=== PATIENT | female | born 1940 | race Caucasian/White ===

== ENCOUNTER 2024-05-30 06:56 | Day surgery (SDC) | payer MEDICARE ==
[2024-05-27 09:24] LABS: Absolute Basophils 0.1 K/uL (0-0.5); Absolute Eosinophils 0.6 K/uL (0-0.5); Absolute Monocytes 0.9 K/uL (0.1-1.3); Absolute Neutrophil 5.6 K/uL (1.8-8.0); Basophils % 1.4 % (0-1.3); Eosinophils % 6.1 % (0-4.4); Hematocrit 27.5 % (36.0-45.0); Hemoglobin 8.9 g/dL (12.0-15.0); Lymphocytes % 29.6 % (15.3-44.8); MCH 25.8 pg (27.0-35.0); MCHC 32.3 g/dL (32.0-36.0); MCV 79.8 fL (80-100); MPV 6.9 fL (7.6-11.3); Monocytes % 8.7 % (3.3-12.3); Neutrophils % 54.2 % (41.7-73.7); Platelets 671 thou/uL (152-406); RBC Red Blood Cell Count 3.45 M/uL (3.86-4.86); Red Cell Distribution Width 18.7 % (12.1-15.2)
[2024-05-27 09:37] LABS: Anion Gap 6.8 mEq/L (5.0-15.0); Potassium 2.8 mEq/L (3.5-5.1)
[2024-05-30] MEDS ORDERED: propofoL 200 MG/20 ML VIAL IV ONE (07:19)
[2024-05-30] MEDS ORDERED: FENTANYL CITR 100 MCG/2 ML ONE (07:19)
[2024-05-30] MEDS ORDERED: LIDOCAINE 1% MPF 5 ML VIAL ONE (07:19)
[2024-05-30] MEDS: LIDOCAINE 4% TOP SOLUTION ONE (07:30)
[2024-05-30] MEDS: Ringers Lactate 1,000 ML IV ONE (07:45)
[2024-05-30] MEDS: Phenylephrine HCl 10 MG/ML 1 ML VIAL ONE (07:51)
[2024-05-30] MEDS: GLYCOPYRROLATE 0.2 MG/ML SYR ONE (07:52)
[2024-05-30] MEDS: LIDOCAINE 1% MPF 30 ML VIAL ONE (08:15)
--- NOTE | 2024-05-30 09:07 | RAD REPORT ---
EXAM DESCRIPTION: RAD - FLUORO-GUIDE FOR BRONCH [id number] - 05/30/2024 8:51 am CLINICAL HISTORY: R LOWER LOBE BRONCH COMPARISON: None available. FINDINGS: Four Images were sent to PACS, documenting fluoroscopy use during image guided right lower lobe bronchoscopy procedure. No radiologist was available for the procedure, nor will any image inte rpretation he provided. Please refer to the procedural report for additional details. Fluoroscopy time: 4.13 Minutes. IMPRESSION: Documentation of fluoroscopy utilization as above.
--- NOTE | 2024-05-30 09:58 | RAD REPORT ---
EXAM DESCRIPTION: Davidt Single View05/30/2024 9:39 am CLINICAL HISTORY: POST BRONCHOSCOPY- R/O PNEUMOTHORAX COMPARISON: CHEST PA AND LAT 2 VIEW dated 11/25/2012; CHEST PA AND LAT 2 VIEW dated 02/11/2011; CHEST P A AND LAT 2 VIEW dated 08/09/2008; CHEST PA AND LAT 2 VIEW dated 02/09/2008; Ct Skull/Thigh dated 2023; Thorax Wo Con dated 04/13/2024 TECHNIQUE: Portable AP view of the chest. FINDINGS: The right basilar large opacity/mass is stable compared to the prior CT and PET-CT allowin g for differences in technique. There may be a component of layering small effusion. No pneumothorax . The cardiomediastinal contours are unremarkable. IMPRESSION: No pneumothorax. Essentially stable right basilar large opacity/mass.
[2024-05-30 10:36] VITALS: TEMP 97.3
[2024-05-30 10:42] VITALS: BP 116/59
[2024-05-30 10:52] VITALS: O2SAT 94
--- NOTE | 2024-05-30 12:24 | P.OP ---
Date of Service: 05/30/24 (Bronchoscopy with right lower lobe endobronchial biopsies BAL) Findings and Operative Technique Patient is 83 years of age admitted with a right lower lobe lung mass with associated with weight loss history of lung cancer hence the reason for bronchoscopy Today report after obtaining informed consent from the patient premedicated by anesthesia Findings normal vocal cords normal trachea left-sided bronchial anatomy the trachea andrés appears to be a little thickened right lower lobe and the right middle lobe was completely obstructed by an endobronchial friable tumor cold biopsies were obtained and tolerated the procedure very well did not experience send Letitia any arrhythmias hypoxemia significant bleeding Note was hypokalemia that was present on admission
--- NOTE | 2024-05-31 18:01 | EKG ---
Test Date: 2024-05-27 Test Time: 09:06:56 Manager Clinical: AYAKA MEASUREMENT RESULTS: Intervals: Rate: 71 UT: 138 QRSD: 80 QT: 408 QTc: 443 [place]: P: 55 UT: 138 QRS: 113 T: 51 INTERPRETIVE STATEMENTS: Normal sinus rhythm Right axis deviation Abnormal ECG Compared to ECG 07/23/1999 15:17:00 Right-axis deviation now present Electronically Signed On 05-31-24 17:51:08 CDT by Wade Diego
== END 2024-05-30 10:18 | disposition home or self-care (01) ==
LOC: OR 06:56
PROVIDERS: ATTEND Internal Medicine Sleep Medicine
PROC: 0B9F8ZX Drainage of Right Lower Lung Lobe, Via Natural or Artificial Opening Endoscopic, Diagnostic (ICD-10-PCS; 2024-05-30)
PROC: 0BBF8ZX Excision of Right Lower Lung Lobe, Via Natural or Artificial Opening Endoscopic, Diagnostic (ICD-10-PCS; principal; 2024-05-30 08:00)
DX: C34.31 Malignant neoplasm of lower lobe, right bronchus or lung (principal); R63.4 Abnormal weight loss; E87.6 Hypokalemia; Z85.118 Personal history of other malignant neoplasm of bronchus and lung
CPT/HCPCS: 31625; 93005; 85025; 80048; 36415 ×2; 88108; 84132; 88305 ×2; 71045; 76000; J2704; J2001 ×2; J2371; J3010; J7120

== ENCOUNTER 2024-06-29 02:05 | Inpatient (IN) | payer MEDICARE ==
--- OUTSIDE RECORDS SUMMARY | 2024-06-29 02:10 | XMS REPORT | Continuity of Care Document ---
Author Name Unknown Address [address] [facility] [place] [address] [facility] thconnect Address [address] [facility] [address] [place] [address] Care Team Providers Care Aquaculture Director Name Role Phone Abhinav Monsalve Attending Clinician Unavailable Board_K Attending Clinician Unavailable Miller_S_AH Attending Clinician Unavailable ILANA LEYVA Attending Clinician Unavailable Pob, [facility] Main Attending Clinician Unavailabl e Eliazar Romano DO Attending Clinician ELIAZAR ROMANO Attending Clinician Unavailable Doctor Unassigned, Bison Attending Clinician U navailable Angelica-Mbayo_A_AH Attending Clinician Unavailable Board_K Admitting Clinician Unavailable Miller_S_AH Admitting Clinician Unavailable Angelica-Mbayo_A_AH Admitting Clinician Unavailable Payers Payer Name Policy Type Policy Number Effective Date Expirati on Date Source [facility] (MEDICARE REPLACEMENT HMO) [id number] 2022 00:00:00 [place] [id number] 2020 00:00:00 [place] [id number] 2020 00:00:00 [place] [id number] 2020 00:00:00 [facility] - [employer] (MEDICARE REPLACEMENT/ADVAN TAGE - HMO) [id number] 2019 00:00:00 [facility] PHYLLIS VILLARREAL CLASSIC/VALUE [id number] 2020 00:00:00 Problems Condition Name Condition Details Condition Category Status Onset Date Resolution Date Last Treatment Date Treating Clinician Comments Source Hypothyroi dism Other specified hypothyroi dism Problem [facility] Malignant neoplasm of lower lobe, right bronchus or lung Malignant neoplasm of lower lobe, right bronchus or lung Problem [facility] Malignant tumor of adrenal gland Malignant neoplasm of unspecifie d part of unspecifie d adrenal gland Problem [facility] [id number] Body mass index [BMI] 35.0-35.9, adult Problem [facility] [id number] Morbid (severe) obesity due to excess calories Problem [facility] Chronic kidney disease stage 3B (disorder) Stage 3b chronic kidney disease Problem Common [facility] [id number] Generalize d anxiety disorder Problem [facility] [id number] Degenerati ve disc disease, lumbar Problem [facility] [id number] Degenerati on, interverte bral disc, lumbosacra l Problem [facility] [id number] Essential hypertensi on Problem Common [facility] [id number] Age-relate d osteoporos is without current pathologic al fracture Problem [facility] [id number] Primary insomnia Problem Common [facility] [id number] Tobacco use disorder Problem [facility] Opioid dependence Uncomplica su opioid dependence Problem [facility] [id number] GERD without esophagiti s Problem [facility] [id number] Subclinica l hypothyroi dism Problem [facility] [id number] Osteoarthr itis of multiple joints, unspecifie d osteoarthr itis type Problem [facility] Screening for colon cancer Screening for colon cancer Problem [facility] Back pain Back pain Problem Comm on [facility] [id number] Pain, joint, hip, right Problem [facility] [id number] Acute bilateral low back pain, unspecifie d whether sciatica present Problem [facility] Lumbar radiculopa thy Chronic lumbar radiculopa thy Problem [facility] [id number] Pain, joint, hip, left Problem [facility] [id number] Dry eye syndrome of both eyes Problem [facility] [id number] Allergic rhinitis, unspecifie d seasonalit y, unspecifie d trigger Problem [facility] [id number] Current moderate episode of major depressive disorder without prior episode Problem [facility] Hip pain Hip pain Problem [facility] Allergies, Adverse Reactions, Alerts Allergy Name Allergy Type Status Severity Reaction(s) Onset Date Inactive Date Treating Clinician Comments Source NO KNOWN ALLERGIE S Drug Class Active [facility] Social History Social Habit Start Date Stop Date Quantity Comments Source Sex Assigned At [facility] History of Tobacco Use 2020-10-11 00:00:00 [facility] Smoking Status Start Date Stop Date Source Unknown if ever smoked [facility] Former Smoker 2024-06-28 00:00:00 2024-06-28 00:00:00 [facility] Medications Ordered Medication Name Filled Medication Name Start Date Stop Date Current Medication? Ordering Clinician Indication Dosage Frequency Signature (SIG) Comments Components Source traMADol HCl 50 MG traMADol HCl 50 MG 03-31 00:00: 00 No 1{table t_as_ne eded} traMADol HCl 50 MG Gabapentin 300 MG Gabapentin 300 MG No 1{capsu le} TID Gabapentin 300 MG Bumetanide 2 MG Bumetanide 2 MG No 1{table t} QD Bumetanide 2 MG Azelastine HCl 0.15 % Azelastine HCl 0.15 % No 2{spray s_in_ea ch_nost ril} QD Azelastine HCl 0.15 % Triamcinolo ne Acetonide 0.5 % Triamcinolo ne Acetonide 0.5 % No BID Triamcinol one Acetonide 0.5 % Calcium Carbonate-V itamin D 600-200 MG-UNIT Calcium Carbonate-V itamin D 600-200 MG-UNIT No 1{capsu le} BID Calcium Carbonate- Vitamin D 600-200 MG-UNIT Levothyroxi ne Sodium 50 MCG Levothyroxi ne Sodium 50 MCG No QD Levothyrox ine Sodium 50 MCG Fluticasone Propionate 50 MCG/ACT Fluticasone Propionate 50 MCG/ACT No 1{spray _in_eac h_nostr il} QD Fluticason e Propionate 50 MCG/ACT Alendronate Sodium 70 MG Alendronate Sodium 70 MG No Alendronat e Sodium 70 MG amLODIPine Besylate 5 MG amLODIPine Besylate 5 MG No 1{table t} QD amLODIPine Besylate 5 MG Omeprazole 20 MG Omeprazole 20 MG No QD Omeprazole 20 MG Lisinopril 40 MG Lisinopril 40 MG No 1{table t} QD Lisinopril 40 MG Sertraline HCl 50 MG Sertraline HCl 50 MG No 1{table t} QD Sertraline HCl 50 MG Montelukast Sodium 10 MG Montelukast Sodium 10 MG No 1{table t} QD Montelukas t Sodium 10 MG Azelastine- Fluticasone 137-50 MCG/ACT Azelastine- Fluticasone 137-50 MCG/ACT No 1{spray _in_eac h_nostr il} BID Azelastine -Fluticaso ne 137-50 MCG/ACT Immunizations Ordered Immunization Name Filled Immunization Name Date Status Comments Source FluAD FluAD 2021-06-21 13:58:00 Completed [facility] FluAD FluAD 2021-06-21 13:58:00 Completed [facility] FluAD FluAD 2021-06-21 13:58:00 [facility]pleted [facility] FluAD FluAD 2021-06-21 13:58:00 [facility]pleted [facility] FluAD FluAD 2021-06-21 13:58:00 [facility] FluAD FluAD 2021-06-21 13:58:00 [facility] FluAD Flu 2020-05-30 14:47:00 Completed [facility] FluAD FluAD 2020-05-30 14:47:00 Completed [facility] FluAD FluAD 2020-05-30 14:47:00 Completed [facility] FluAD FluAD 2020-05-30 14:47:00 Completed [facility] FluAD FluAD 2020-05-30 14:47:00 Completed [facility] FluAD FluAD 2020-05-30 14:47:00 Completed [facility] FluAD FluAD 2020-05-30 14:47:00 Completed [facility] FluAD FluAD 2020-05-30 14:47:00 Completed [facility] FluAD FluAD 2019-06-13 15:43:00 Completed [facility] FluAD FluAD 2019-06-13 15:43:00 Completed [facility] FluAD FluAD 2019-06-13 15:43:00 Completed [facility] FluAD FluAD 2019-06-13 15:43:00 Completed [facility] FluAD FluAD 2019-06-13 15:43:00 Completed [facility] FluAD FluAD 2019-06-13 15:43:00 Completed [facility] FluAD FluAD 2019-06-13 15:43:00 Completed [facility] FluAD FluAD 2019-06-13 15:43:00 Completed [facility] Pneumovax (PPSV23) Pneumovax (PPSV23) 2018-02-12 15:44:00 Completed [facility] Pneumovax (PPSV23) Pneumovax (PPSV23) 2018-02-12 15:44:00 Completed [facility] Pneumovax (PPSV23) Pneumovax (PPSV23) 2018-02-12 15:44:00 Completed [facility] Pneumovax (PPSV23) Pneumovax (PPSV23) 2018-02-12 15:44:00 Completed [facility] Pneumovax (PPSV23) Pneumovax (PPSV23) 2018-02-12 15:44:00 Completed [facility] Pneumovax (PPSV23) Pneumovax (PPSV23) 2018-02-12 15:44:00 Completed [facility] Pneumovax (PPSV23) Pneumovax (PPSV23) 2018-02-12 15:44:00 Completed [facility] Pneumovax (PPSV23) Pneumovax (PPSV23) 2018-02-12 15:44:00 Completed [facility] Pneumovax (PPSV23) Pneumovax (PPSV23) 2017-02-25 15:43:00 Completed [facility] Pneumovax (PPSV23) Pneumovax (PPSV23) 2017-02-25 15:43:00 Completed [facility] Pneumovax (PPSV23) Pneumovax (PPSV23) 2017-02-25 15:43:00 Completed [facility] Pneumovax (PPSV23) Pneumovax (PPSV23) 2017-02-25 15:43:00 Completed [facility] Pneumovax (PPSV23) Pneumovax (PPSV23) 2017-02-25 15:43:00 Completed [facility] Pneumovax (PPSV23) Pneumovax (PPSV23) 2017-02-25 15:43:00 Completed [facility] Pneumovax (PPSV23) Pneumovax (PPSV23) 2017-02-25 15:43:00 Completed [facility] Pneumovax (PPSV23) Pneumovax (PPSV23) 2017-02-25 15:43:00 Completed [facility] Zostavax Zostavax 2015-12-19 15:44:00 Completed [facility] Zostavax Zostavax 2015-12-19 15:44:00 Completed [facility] Zostavax Zostavax 2015-12-19 15:44:00 Completed [facility] Zostavax Zostavax 2015-12-19 15:44:00 Completed [facility] Zostavax Zostavax 2015-12-19 15:44:00 Completed [facility] Zostavax Zostavax 2015-12-19 15:44:00 Completed [facility] Zostavax Zostavax 2015-12-19 15:44:00 Completed [facility] Zostavax Zostavax 2015-12-19 15:44:00 Completed [facility] Adacel (Tdap) Adacel (Tdap) 2010-02-26 15:43:00 Completed [facility] Adacel (Tdap) Adacel (Tdap) 2010-02-26 15:43:00 Completed [facility] Adacel (Tdap) Adacel (Tdap) 2010-02-26 15:43:00 Completed [facility] Adacel (Tdap) Adacel (Tdap) 2010-02-26 15:43:00 Completed [facility] Adacel (Tdap) Adacel (Tdap) 2010-02-26 15:43:00 Completed [facility] Adacel (Tdap) Adacel (Tdap) 2010-02-26 15:43:00 Completed [facility] Adacel (Tdap) Adacel (Tdap) 2010-02-26 15:43:00 Completed [facility] Adacel (Tdap) Adacel (Tdap) 2010-02-26 15:43:00 Completed [facility] FluAD FluAD Unknown Completed [facility] FluAD FluAD Unknown Completed [facility] FluAD FluAD Unknown Completed [facility]pi [facility] Pneumovax (PPSV23) Pneumovax (PPSV23) Unknown Completed [facility] Pneumovax (PPSV23) Pneumovax (PPSV23) Unknown Completed [facility] Adacel (Tdap) Adacel (Tdap) Unknown Completed [facility] Zostavax Zostavax Unknown Completed [facility] FluAD FluAD Unknown Completed [facility] FluAD FluAD Unknown Completed [facility] FluAD FluAD Unknown Completed [facility] Pneumovax (PPSV23) Pneumovax (PPSV23) Unknown Completed [facility] Pneumovax (PPSV23) Pneumovax (PPSV23) Unknown Completed [facility] Adacel (Tdap) Adacel (Tdap) Unknown Completed [facility] Zostavax Zostavax Unknown Completed [facility] FluAD FluAD Unknown Completed [facility] FluAD FluAD Unknown Completed [facility] FluAD FluAD Unknown Completed [facility] Pneumovax (PPSV23) Pneumovax (PPSV23) Unknown Completed [facility] Pneumovax (PPSV23) Pneumovax (PPSV23) Unknown Completed [facility] Adacel (Tdap) Adacel (Tdap) Unknown Completed [facility] Zostavax Zostavax Unknown Completed [facility] FluAD FluAD Unknown Completed [facility] FluAD FluAD Unknown Completed [facility] FluAD FluAD Unknown Completed [facility] Pneumovax (PPSV23) Pneumovax (PPSV23) Unknown Completed [facility] Pneumovax (PPSV23) Pneumovax (PPSV23) Unknown Completed [facility] Adacel (Tdap) Adacel (Tdap) Unknown Completed [facility] Zostavax Zostavax Unknown Completed [facility] FluAD FluAD Unknown Completed [facility] FluAD FluAD Unknown Completed [facility] FluAD FluAD Unknown Completed [facility] Pneumovax (PPSV23) Pneumovax (PPSV23) Unknown Completed [facility] Pneumovax (PPSV23) Pneumovax (PPSV23) Unknown Completed [facility] Adacel (Tdap) Adacel (Tdap) Unknown Completed [facility] Zostavax Zostavax Unknown Completed [facility] FluAD FluAD Unknown Completed [facility] FluAD FluAD Unknown Completed [facility] FluAD FluAD Unknown Completed [facility] Pneumovax (PPSV23) Pneumovax (PPSV23) Unknown Completed [facility] Pneumovax (PPSV23) Pneumovax (PPSV23) Unknown Completed [facility] Adacel (Tdap) Adacel (Tdap) Unknown Completed [facility] Zostavax Zostavax Unknown Completed [facility] FluAD FluAD Unknown Completed [facility] FluAD FluAD Unknown Completed [facility] FluAD FluAD Unknown Completed [facility] Pneumovax (PPSV23) Pneumovax (PPSV23) Unknown Completed [facility] Pneumovax (PPSV23) Pneumovax (PPSV23) Unknown Completed [facility] Adacel (Tdap) Adacel (Tdap) Unknown Completed [facility] Zostavax Zostavax Unknown Completed [facility] FluAD FluAD Unknown Completed [facility] FluAD FluAD Unknown Completed [facility] FluAD FluAD Unknown Completed [facility] Pneumovax (PPSV23) Pneumovax (PPSV23) Unknown Completed [facility] Pneumovax (PPSV23) Pneumovax (PPSV23) Unknown Completed [facility] Adacel (Tdap) Adacel (Tdap) Unknown Completed [facility] Zostavax Zostavax Unknown Completed [facility] FluAD FluAD Unknown Completed [facility] FluAD FluAD Unknown Completed [facility] FluAD FluAD Unknown Completed [facility] Pneumovax (PPSV23) Pneumovax (PPSV23) Unknown Completed [facility] Pneumovax (PPSV23) Pneumovax (PPSV23) Unknown Completed [facility] Adacel (Tdap) Adacel (Tdap) Unknown Completed [facility] Zostavax Zostavax Unknown Completed [facility] FluAD FluAD Unknown Completed [facility] FluAD FluAD Unknown Completed [facility] FluAD FluAD Unknown Completed [facility] Pneumovax (PPSV23) Pneumovax (PPSV23) Unknown Completed [facility] Pneumovax (PPSV23) Pneumovax (PPSV23) Unknown Completed [facility] Adacel (Tdap) Adacel (Tdap) Unknown Completed [facility] Zostavax Zostavax Unknown Completed [facility] FluAD FluAD Unknown Completed [facility] FluAD FluAD Unknown Completed [facility] FluAD FluAD Unknown Completed [facility] Pneumovax (PPSV23) Pneumovax (PPSV23) Unknown Completed [facility] Pneumovax (PPSV23) Pneumovax (PPSV23) Unknown Completed [facility] Adacel (Tdap) Adacel (Tdap) Unknown Completed [facility] Zostavax Zostavax Unknown Completed [facility] FluAD FluAD Unknown Completed [facility] FluAD FluAD Unknown Completed [facility] FluAD FluAD Unknown Completed [facility] Pneumovax (PPSV23) Pneumovax (PPSV23) Unknown Completed [facility] Pneumovax (PPSV23) Pneumovax (PPSV23) Unknown Completed [facility] Adacel (Tdap) Adacel (Tdap) Unknown Completed [facility] Zostavax Zostavax Unknown Completed [facility] FluAD FluAD Unknown Completed [facility] FluAD FluAD Unknown Completed [facility] FluAD FluAD Unknown Completed [facility] Pneumovax (PPSV23) Pneumovax (PPSV23) Unknown Completed [facility] Pneumovax (PPSV23) Pneumovax (PPSV23) Unknown Completed [facility] Adacel (Tdap) Adacel (Tdap) Unknown Completed [facility] Zostavax Zostavax Unknown Completed [facility] FluAD FluAD Unknown Completed [facility] FluAD FluAD Unknown Completed [facility] FluAD FluAD Unknown Completed [facility] Pneumovax (PPSV23) Pneumovax (PPSV23) Unknown Completed [facility] Pneumovax (PPSV23) Pneumovax (PPSV23) Unknown Completed [facility] Adacel (Tdap) Adacel (Tdap) Unknown Completed [facility] Zostavax Zostavax Unknown Completed [facility] FluAD FluAD Unknown Completed [facility] FluAD FluAD Unknown Completed [facility] FluAD FluAD Unknown Completed [facility] Pneumovax (PPSV23) Pneumovax (PPSV23) Unknown Completed [facility] Pneumovax (PPSV23) Pneumovax (PPSV23) Unknown Completed [facility] Adacel (Tdap) Adacel (Tdap) Unknown Completed [facility] Zostavax Zostavax Unknown Completed [facility] FluAD FluAD Unknown Completed [facility] FluAD FluAD Unknown Completed [facility] FluAD FluAD Unknown Completed [facility] Pneumovax (PPSV23) Pneumovax (PPSV23) Unknown Completed [facility] Pneumovax (PPSV23) Pneumovax (PPSV23) Unknown Completed [facility] Adacel (Tdap) Adacel (Tdap) Unknown Completed [facility] Zostavax Zostavax Unknown Completed [facility] FluAD FluAD Unknown Completed [facility] FluAD FluAD Unknown Completed [facility] FluAD FluAD Unknown Completed [facility] Pneumovax (PPSV23) Pneumovax (PPSV23) Unknown Completed [facility] Pneumovax (PPSV23) Pneumovax (PPSV23) Unknown Completed [facility] Adacel (Tdap) Adacel (Tdap) Unknown Completed [facility] Zostavax Zostavax Unknown Completed [facility] FluAD FluAD Unknown Completed [facility] FluAD FluAD Unknown Completed [facility] FluAD FluAD Unknown Completed [facility] Pneumovax (PPSV23) Pneumovax (PPSV23) Unknown Completed [facility] Pneumovax (PPSV23) Pneumovax (PPSV23) Unknown Completed [facility] Adacel (Tdap) Adacel (Tdap) Unknown Completed [facility] Zostavax Zostavax Unknown Completed [facility] FluAD FluAD Unknown Completed [facility] FluAD FluAD Unknown Completed [facility] FluAD FluAD Unknown Completed [facility] Pneumovax (PPSV23) Pneumovax (PPSV23) Unknown Completed [facility] Pneumovax (PPSV23) Pneumovax (PPSV23) Unknown Completed [facility] Adacel (Tdap) Adacel (Tdap) Unknown Completed [facility] Zostavax Zostavax Unknown Completed [facility] FluAD FluAD Unknown Completed [facility] FluAD FluAD Unknown Completed [facility] FluAD FluAD Unknown Completed [facility] Pneumovax (PPSV23) Pneumovax (PPSV23) Unknown Completed [facility] Pneumovax (PPSV23) Pneumovax (PPSV23) Unknown Completed [facility] Adacel (Tdap) Adacel (Tdap) Unknown Completed [facility] Zostavax Zostavax Unknown Completed [facility] Vital Signs Vital Name Observation Time Observation Value Comments S ource height 2024-03-31 13:50:00 62 [in_i] Commo n [facility] weight 2024-03-31 13:50:00 144.4 [lb_av] [facility] temperature 2024-03-31 13:50:00 97.3 [degF] Com mon [facility] bmi 2024-03-31 13:50:00 26.41 kg/m2 Comm on [facility] oximetry 2024-03-31 13:50:00 95 % Commo n [facility] blood pressure systolic 2024-03-31 13:50:00 112 mm[Hg] [facility] blood pressure diastolic 2024-03-31 13:50:00 64 mm[Hg] [facility] height 2024-03-31 13:50:00 62 [in_i] Commo n [facility] weight 2024-03-31 13:50:00 144.4 [lb_av] Co mmon [facility] temperature 2024-03-31 13:50:00 97.3 [degF] Com mon [facility] bmi 2024-03-31 13:50:00 26.41 kg/m2 Comm on [facility] oximetry 2024-03-31 13:50:00 95 % Commo n [facility] blood pressure systolic 2024-03-31 13:50:00 112 mm[Hg] [facility] blood pressure diastolic 2024-03-31 13:50:00 64 mm[Hg] [facility] height 2023-12-30 13:50:00 62 [in_i] Commo n [facility] weight 2023-12-30 13:50:00 152.0 [lb_av] Co mmon [facility] temperature 2023-12-30 13:50:00 97.6 [degF] Com mon [facility] bmi 2023-12-30 13:50:00 27.8 kg/m2 Commo n [facility] oximetry 2023-12-30 13:50:00 95 % Commo n [facility] respiratory rate 2023-12-30 13:50:00 17 /min Common [facility] blood pressure systolic 2023-12-30 13:50:00 115 mm[Hg] [facility] blood pressure diastolic 2023-12-30 13:50:00 63 mm[Hg] [facility] height 2023-09-30 15:10:00 62 [in_i] Commo n [facility] weight 2023-09-30 15:10:00 165.8 [facility]lb_av] [facility]23[facility] 15:10:00 97.6 [degF] Com [facility] bmi 2023-09-30 15:10:00 30.32 kg/m2 Comm on [facility] oximetry 2023-09-30 15:10:00 95 % Commo n [facility] blood pressure systolic 2023-09-30 15:10:00 120 mm[Hg] [facility] blood pressure diastolic 2023-09-30 15:10:00 74 mm[Hg] Common [facility] height 2023-06-30 14:30:00 62 [in_i] Commo n [facility] weight 2023-06-30 14:30:00 175.0 [lb_av] Co [facility] temperature 2023-06-30 14:30:00 97.0 [degF] Com [facility] bmi 2023-06-30 14:30:00 32 kg/m2 Commo n [facility] oximetry 2023-06-30 14:30:00 97 % Commo n [facility] respiratory rate 2023-06-30 14:30:00 18 /min Common [facility] blood pressure systolic 2023-06-30 14:30:00 119 mm[Hg] [facility] blood pressure diastolic 2023-06-30 14:30:00 68 mm[Hg] [facility] height 2023-06-25 15:00:00 62 [in_i] Commo n [facility] weight 2023-06-25 15:00:00 185.1 [lb_av] Co [facility] temperature 2023-06-25 15:00:00 97.2 [degF] Com [facility] bmi 2023-06-25 15:00:00 33.85 kg/m2 Comm on [facility] blood pressure systolic 2023-06-25 15:00:00 138 mm[Hg] [facility] blood pressure diastolic 2023-06-25 15:00:00 76 mm[Hg] [facility] height 2023-03-24 14:30:00 62 [in_i] Commo n [facility] weight 2023-03-24 14:30:00 194.4 [lb_av] Co mmon [facility] temperature 2023-03-24 14:30:00 97.3 [degF] Com [facility] bmi 2023-03-24 14:30:00 35.55 kg/m2 Comm on [facility] oximetry 2023-03-24 14:30:00 96 % Commo n [facility] respiratory rate 2023-03-24 14:30:00 17 /min Common [facility] blood pressure systolic 2023-03-24 14:30:00 126 mm[Hg] [facility] blood pressure diastolic 2023-03-24 14:30:00 71 mm[Hg] [facility] height 2023-03-24 14:20:00 62 [in_i] Commo n [facility] weight 2023-03-24 14:20:00 194.4 [lb_av] Co mmon [facility] temperature 2023-03-24 14:20:00 97.3 [degF] Com [facility] bmi 2023-03-24 14:20:00 35.55 kg/m2 Comm on [facility] oximetry 2023-03-24 14:20:00 96 % Commo n [facility] respiratory rate 2023-03-24 14:20:00 17 /min Common [facility] blood pressure systolic 2023-03-24 14:20:00 126 mm[Hg] [facility] blood pressure diastolic 2023-03-24 14:20:00 71 mm[Hg] [facility] height 2022-12-16 14:10:00 62 [in_i] Commo n [facility] weight 2022-12-16 14:10:00 191 [lb_av] Comm on [facility] temperature 2022-12-16 14:10:00 96.9 [degF] Com mon [facility] bmi 2022-12-16 14:10:00 34.93 kg/m2 Comm on [facility] oximetry 2022-12-16 14:10:00 95 % Commo n [facility] respiratory rate 2022-12-16 14:10:00 16 /min Common [facility] blood pressure systolic 2022-12-16 14:10:00 112 mm[Hg] [facility] blood pressure diastolic 2022-12-16 14:10:00 57 mm[Hg] [facility] height 2022-09-11 15:00:00 62 [in_i] Commo n [facility] weight 2022-09-11 15:00:00 191.1 [lb_av] Co mmon [facility] temperature 2022-09-11 15:00:00 96.7 [degF] Com mon [facility] bmi 2022-09-11 15:00:00 34.95 kg/m2 Comm on [facility] oximetry 2022-09-11 15:00:00 97 % Commo n [facility] respiratory rate 2022-09-11 15:00:00 17 /min [facility] blood pressure systolic 2022-09-11 15:00:00 132 mm[Hg] [facility] blood pressure diastolic 2022-09-11 15:00:00 65 mm[Hg] Common [facility] height 2022-06-12 13:50:00 62 [in_i] Commo n [facility] weight 2022-06-12 13:50:00 192.5 [lb_av] Co [facility] temperature 2022-06-12 13:50:00 97.6 [degF] Com mon [facility] bmi 2022-06-12 13:50:00 35.2 kg/m2 Commo n [facility] oximetry 2022-06-12 13:50:00 96 % Commo n [facility] respiratory rate 2022-06-12 13:50:00 18 /min [facility] blood pressure systolic 2022-06-12 13:50:00 124 mm[Hg] Common [facility] blood pressure diastolic 2022-06-12 13:50:00 71 mm[Hg] [facility] height 2022-03-13 14:50:00 62 [in_i] Commo n [facility] weight 2022-03-13 14:50:00 193.2 [lb_av] Co [facility] temperature 2022-03-13 14:50:00 97.4 [degF] Com mon [facility] bmi 2022-03-13 14:50:00 35.33 kg/m2 Comm on [facility] oximetry 2022-03-13 14:50:00 96 % Commo n [facility] respiratory rate 2022-03-13 14:50:00 17 /min Common [facility] blood pressure systolic 2022-03-13 14:50:00 139 mm[Hg] [facility] blood pressure diastolic 2022-03-13 14:50:00 69 mm[Hg] [facility] height 2022-03-13 15:00:00 62 [in_i] Commo n [facility] weight 2022-03-13 15:00:00 193.2 [lb_av] Co mmon [facility] temperature 2022-03-13 15:00:00 97.4 [degF] Com [facility] bmi 2022-03-13 15:00:00 35.33 kg/m2 Comm on [facility] oximetry 2022-03-13 15:00:00 96 % Commo n [facility] respiratory rate 2022-03-13 15:00:00 17 /min Common [facility] blood pressure systolic 2022-03-13 15:00:00 139 mm[Hg] [facility] blood pressure diastolic 2022-03-13 15:00:00 69 mm[Hg] [facility] height 2021-12-12 14:00:00 62 [in_i] Commo n [facility] weight 2021-12-12 14:00:00 189.4 [lb_av] Co mmon [facility] temperature 2021-12-12 14:00:00 97.4 [degF] Com [facility] bmi 2021-12-12 14:00:00 34.64 kg/m2 Comm on [facility] oximetry 2021-12-12 14:00:00 95 % Commo n [facility] respiratory rate 2021-12-12 14:00:00 16 /min Common [facility] blood pressure systolic 2021-12-12 14:00:00 138 mm[Hg] [facility] blood pressure diastolic 2021-12-12 14:00:00 66 mm[Hg] Common [facility] height 2021-09-12 14:00:00 62 [in_i] Commo n [facility] weight 2021-09-12 14:00:00 195.3 [lb_av] Co mmon [facility] temperature 2021-09-12 14:00:00 97.3 [degF] Com mon [facility] bmi 2021-09-12 14:00:00 35.72 kg/m2 Comm on [facility] oximetry 2021-09-12 14:00:00 96 % Commo n [facility] respiratory rate 2021-09-12 14:00:00 18 /min Common [facility] blood pressure systolic 2021-09-12 14:00:00 132 mm[Hg] Common [facility] blood pressure diastolic 2021-09-12 14:00:00 65 mm[Hg] [facility] height 2021-06-13 14:30:00 62 [in_i] Commo n [facility] weight 2021-06-13 14:30:00 193.7 [lb_av] Co mmon [facility] temperature 2021-06-13 14:30:00 97.2 [degF] Com mon [facility] bmi 2021-06-13 14:30:00 35.42 kg/m2 Comm on [facility] oximetry 2021-06-13 14:30:00 96 % Commo n [facility] respiratory rate 2021-06-13 14:30:00 17 /min [facility] blood pressure systolic 2021-06-13 14:30:00 131 mm[Hg] [facility] blood pressure diastolic 2021-06-13 14:30:00 65 mm[Hg] [facility] Procedures Procedure Date / Time Performed Performing Clinicia n Source ASSIGNMENT OF BENEFITS 2020-12-03 17:00:00 Docto r Unassigned, [place] [facility] Encounters Start Date/Time End Date/Time Encounter Type Admission Type Attending [facility] Care Facility Care Department Encounter ID Source 2024-03-30 12:10:00 Outpatient Abhinav Monsalve [facility] [id number] [facility] 2023-12-28 13:56:00 Outpatient Monsalve, Abhinav [facility] [id number] [facility] 2023-06-29 13:40:00 Outpatient Monsalve, Abhinav [facility] [id number] [facility] 2023-06-25 16:28:00 Outpatient Monsalve, Abhinav [facility] [id number] [facility] 2023-06-22 14:58:00 Outpatient Monsalve, Abhinav [facility] [id number] [facility] 2023-06-17 13:39:00 Outpatient Monsalve, Abhinav [facility] [id number] [facility] 2023-03-20 10:17:00 Outpatient Monsalve, Abhinav [facility] [id number] [facility] 2022-12-15 12:17:00 Outpatient Monsalve, Abhinav [facility] [id number] [facility] 2022-09-10 09:39:01 Outpatient Monsalve, Abhinav [facility] [id number] [facility] 2022-03-15 09:19:00 Outpatient Monsalve, Abhinav [facility] [id number] [facility] 2021-11-06 13:45:34 Outpatient Monsalve, Abhinav [facility] [id number] [facility] 2021-11-06 12:52:54 Outpatient Monsalve, Abhinav [facility] [id number] [facility] 2021-11-06 12:34:43 Outpatient Monsalve, Abhinav [facility] [id number] [facility] 2021-11-06 12:33:57 Outpatient Monsalve, Abhinav [facility] [id number] [facility] 2021-11-06 11:21:23 Outpatient Abhinav Monsalve [facility] [id number] [facility] 2024-06-27 00:00:00 2024-06-27 00:00:00 (WEB) [facility]C [facility] [id number] [facility] 2024-06-17 00:00:00 2024-06-17 00:00:00 (TEL) STL[facility]C [facility] [id number] [facility] 2024-06-13 00:00:00 2024-06-13 00:00:00 (WEB) STLMLC ST[facility] [id number] [facility] 2024-05-20 00:00:00 2024-05-20 00:00:00 (TEL) STLMLC [facility] [id number] [facility] 2024-05-04 00:00:00 2024-05-04 00:00:00 (TEL) STLMLC [facility] [id number] [facility] 2024-04-13 00:00:00 2024-04-13 00:00:00 (TEL) STLMLC [facility] [id number] [facility] 2024-03-31 00:00:00 2024-03-31 00:00:00 OFFICE VISIT ESTAB PT LEVEL 4 [facility]C ST[facility] [id number] [facility] 2024-03-31 00:00:00 2024-03-31 00:00:00 SUB ANNUAL [facility] VISIT [facility] [id number] [facility] 2024-03-31 00:00:00 2024-03-31 00:00:00 (TEL) STLMLC ST[facility] [id number] [facility] 2023-12-30 00:00:00 2023-12-30 00:00:00 OFFICE VISIT ESTAB PT LEVEL 4 [facility]C ST[facility] [id number] [facility] 2023-09-30 00:00:00 2023-09-30 00:00:00 OFFICE VISIT ESTAB PT LEVEL 4 [facility]C [facility] [id number] [facility] 2023-07-20 00:00:00 2023-07-20 00:00:00 (TEL) STLMLC ST[facility]C [id number] [facility] 2023-07-13 00:00:00 2023-07-13 00:00:00 (WEB) STLMLC ST[facility]C [id number] [facility] 2023-07-12 00:00:00 2023-07-12 00:00:00 (WEB) STLMLC ST[facility] [id number] [facility] 2023-07-06 00:00:00 2023-07-06 00:00:00 (TEL) STLMLC ST[facility]C [id number] [facility] 2023-07-04 00:00:00 2023-07-04 00:00:00 (WEB) STLMLC STL[facility]C [id number] [facility] 2023-07-03 00:00:00 2023-07-03 00:00:00 (WEB) STLMLC ST[facility]C [id number] [facility] 2023-07-01 00:00:00 2023-07-01 00:00:00 (WEB) STLMLC STL[facility]C [id number] [facility] 2023-06-30 00:00:00 2023-06-30 00:00:00 OFFICE VISIT ESTAB PT LEVEL 4 [facility]C ST[facility]C [id number] [facility] 2023-06-29 00:00:00 2023-06-29 00:00:00 (TEL) STLMLC STL[facility]C [id number] [facility] 2023-06-29 00:00:00 2023-06-29 00:00:00 (TEL) STLMLC STL[facility]C [id number] [facility] 2023-06-28 00:00:00 2023-06-28 00:00:00 (WEB) STLMLC STL[facility]C [id number] [facility] 2023-06-25 00:00:00 2023-06-25 00:00:00 OFFICE VISIT NEW PT LEVEL 3 [facility]C STL[facility]C [id number] [facility] 2023-06-17 00:00:00 2023-06-17 00:00:00 (TEL) STLMLC ST[facility]C [id number] [facility] 2023-06-11 00:00:00 2023-06-11 00:00:00 (TEL) STLMLC STLMLC [id number] [facility] 2023-04-24 00:00:00 2023-04-24 00:00:00 Outpatient Board_K DMG DM [id number] [facility] 2023-03-24 00:00:00 2023-03-24 00:00:00 OFFICE VISIT ESTAB PT LEVEL 4 [facility]C ST[facility]C [id number] [facility] 2023-03-24 00:00:00 2023-03-24 00:00:00 SUB ANNUAL [facility] VIS[facility] [id number] [facility] 2023-02-13 00:00:00 2023-02-13 00:00:00 Outpatient DMG DMG [id number] [facility] 2022-12-16 00:00:00 2022-12-16 00:00:00 OFFICE VISIT ESTAB PT LEVEL 4 [facility]C STL[facility]C [id number] [facility] 2022-09-16 00:00:00 2022-09-16 00:00:00 Outpatient DMG DMG [id number] [facility] 2022-09-11 00:00:00 2022-09-11 00:00:00 OFFICE VISIT ESTAB PT LEVEL 4 [facility]LMLC STLMLC [id number] [facility] 2022-06-12 00:00:00 2022-06-12 00:00:00 OFFICE VISIT ESTAB PT LEVEL 4 [facility]C STL[facility]C [id number] [facility] 2022-03-13 00:00:2022-03-13 00:00:00 OFFICE VISIT ESTAB PT LEVEL 4 [facility]C STL[facility]C [id number] [facility] 2022-03-13 00:00:00 2022-03-13 00:00:00 SUB ANNUAL [facility] VIS[facility] ST[facility] [id number] [facility] 2021-12-12 00:00:00 2021-12-12 00:00:00 OFFICE VISIT ESTAB PT LEVEL 4 [facility]C STL[facility]C [id number] [facility] 2021-09-12 00:00:00 2021-09-12 00:00:00 OFFICE VISIT ESTAB PT LEVEL 4 [facility]LMLC STLMLC [id number] [facility] 2021-06-13 00:00:00 2021-06-13 00:00:00 OFFICE VISIT ESTAB PT LEVEL 4 [facility]C STL[facility]C [id number] [facility] 2021-06-13 00:00:00 2021-06-13 00:00:00 (TEL) STLMLC STLMLC [id number] [facility] 2021-06-03 00:00:00 2021-06-03 00:00:00 Outpatient [facility]LMLC ST[facility] [id number] [facility] 2021-04-08 05:25:00 2021-04-08 05:25:00 Outpatient Miller_S_AH VFP VFP [id number] [facility] 2021-03-13 00:00:00 2021-03-13 00:00:00 Outpatient STLMLC STL[facility]C [id number] [facility] 2021-03-13 00:00:00 2021-03-13 00:00:00 Outpatient STLMLC ST[facility]C [id number] [facility] 2021-01-30 00:00:00 2021-01-30 00:00:00 Outpatient [facility]LMLC STL[facility]C [id number] [facility] 2021-01-25 00:00:00 2021-01-25 00:00:00 Outpatient STLMLC STL[facility]C [id number] [facility] 2021-01-16 11:00:00 2021-01-16 11:00:00 Outpatient IL[facility] [id number] [facility] 2020-12-19 11:00:00 2020-12-19 11:00:00 Outpatient [facility] [id number] [facility] 2020-12-10 00:00:00 2020-12-10 00:00:00 Outpatient STLMLC STL[facility]C [id number] [facility] 2020-12-03 10:59:16 2020-12-03 11:14:16 Shake Packer Visit Pob, Adc Lab [facility] [id number] [facility] 2020-12-03 11:00:00 2020-12-03 11:00:00 Outpatient [facility] [id number] [facility] 2020-12-03 00:00:00 2020-12-03 00:00:00 Orders Only Doctor Unassigned, [place] [facility] [id number] [facility] 2020-08-28 00:00:00 2020-08-28 00:00:00 Outpatient STLMLC STLMLC [id number] [facility] 2020-05-24 12:59:00 2020-05-24 12:59:00 Outpatient [facility] [id number] [facility] 2020-05-23 15:15:00 2020-05-23 15:15:00 Outpatient [facility] [id number] [facility] 2020-05-23 15:00:00 2020-05-23 15:00:00 Outpatient [facility] [id number] [facility] 2020-02-20 15:30:00 2020-02-20 15:30:00 Outpatient [facility] [id number] [facility] 2019-12-08 01:00:00 2019-12-08 01:00:00 Outpatient Angelica-Mbayo _A_AH VFP VFP [id number] [facility] 2019-12-08 01:00:00 2019-12-08 01:00:00 Outpatient Angelica-Mbayo _A_AH VFP VFP [id number] [facility] 2019-12-08 01:00:00 2019-12-08 01:00:00 Outpatient Angelica-Mbayo _A_AH VFP VFP [id number] [facility] 2019-12-08 01:00:00 2019-12-08 01:00:00 Outpatient Angelica-Mbayo _A_AH VFP VFP [id number] [facility] 2019-12-08 01:00:00 2019-12-08 01:00:00 Outpatient Angelica-Mbayo _A_AH VFP VFP [id number] [facility] Results Test Description Test Time Test Comments Results Result Co mments Source [id number] 00:00:00* Test Item Value Reference Range Interpretation Comme nts FERRITIN (test code = 44129-2) 145 NG/ML See_Comment [Automated messa ge] The system which generated this result transmitted reference range: 13-200 NG/ML. The reference range was not used to interpret this result as normal/abnormal. CBC W/AUTO [id number] 00:00:00* Test Item Value Reference Range Interpretation Comme nts NUCLEATED RBCS (test code = 67937-3) 0.0 /100 WBC'S See_Comment [Automated messa ge] The system which generated this result transmitted reference range: 0.0 /100 WBC'S. The reference range was not used to interpret this result as normal/abnormal. ABSOLUTE EOSINOPHILS (test code = 96475-5) 0.34 K/UL See_Comment [Automated messa ge] The system which generated this result transmitted reference range: 0.00-0.50 K/UL. The reference range was not used to interpret this result as normal/abnormal. ABSOLUTE LYMPHOCYTES (test code = 77257-3) 2.74 K/UL See_Comment [Automated messa ge] The system which generated this result transmitted reference range: 1.00-4.00 K/UL. The reference range was not used to interpret this result as normal/abnormal. ABSOLUTE MONOCYTES (test code = 25611-7) 0.56 K/UL See_Comment [Automated messa ge] The system which generated this result transmitted reference range: 0.20-1.00 K/UL. The reference range was not used to interpret this result as normal/abnormal. ABSOLUTE NEUTROPHILS (test code = 05522-3) 4.42 K/UL See_Comment [Automated messa ge] The system which generated this result transmitted reference range: 1.50-7.50 K/UL. The reference range was not used to interpret this result as normal/abnormal. BASOPHILS (test code = 29512-9) 1.0 % EOSINOPHILS (test code = 50057-9) 4.2 % HEMATOCRIT (test code = 74541-4) 33.2 % See_Comment L [Automated messa ge] The system which generated this result transmitted reference range: 34.0-45.0 %. The reference range was not used to interpret this result as normal/abnormal. HEMOGLOBIN (test code = 718-7) 10.8 G/DL See_Comment L [Automated messa ge] The system which generated this result transmitted reference range: 11.5-15.5 G/DL. The reference range was not used to interpret this result as normal/abnormal. LYMPHOCYTES (test code = 23699-0) 33.5 % MCH (test code = 43787-3) 29.3 PG See_Comment [Automated messa ge] The system which generated this result transmitted reference range: 25.0-33.0 PG. The reference range was not used to interpret this result as normal/abnormal. MCHC (test code = 32880-5) 32.5 G/DL See_Comment [Automated messa ge] The system which generated this result transmitted reference range: 31.0-36.0 G/DL. The reference range was not used to interpret this result as normal/abnormal. MCV (test code = 87292-8) 90.2 fL See_Comment [Automated messa ge] The system which generated this result transmitted reference range: 80.0-99.0 fL. The reference range was not used to interpret this result as normal/abnormal. MONOCYTES (test code = 24172-6) 6.8 % NEUTROPHILS (test code = 00970-2) 53.9 % PLATELET COUNT (test code = 93626-4) 572 K/UL See_Comment H [Automated messa ge] The system which generated this result transmitted reference range: 130-400 K/UL. The reference range was not used to interpret this result as normal/abnormal. RBC (test code = 02426-7) 3.68 M/UL See_Comment L [Automated messa ge] The system which generated this result transmitted reference range: 3.80-5.40 M/UL. The reference range was not used to interpret this result as normal/abnormal. RDW (test code = 57743-3) 13.4 % See_Comment [Automated messa ge] The system which generated this result transmitted reference range: 11.5-15.0 %. The reference range was not used to interpret this result as normal/abnormal. WBC (test code = 82768-9) 8.2 K/UL See_Comment [Automated messa ge] The system which generated this result transmitted reference range: 3.5-11.0 K/UL. The reference range was not used to interpret this result as normal/abnormal. [id number] 00:00:00* Test Item Value Reference Range Interpretation Comme nts result (test code = 34558-6) Negative CBC W/AUTO [id number] 00:00:00* Test Item Value Reference Range Interpretation Comme nts NUCLEATED RBCS (test code = 10296-5) 0.0 /100 WBC'S See_Comment [Automated messa ge] The system which generated this result transmitted reference range: 0.0 /100 WBC'S. The reference range was not used to interpret this result as normal/abnormal. ABSOLUTE EOSINOPHILS (test code = 74732-0) 0.32 K/UL See_Comment [Automated messa ge] The system which generated this result transmitted reference range: 0.00-0.50 K/UL. The reference range was not used to interpret this result as normal/abnormal. ABSOLUTE LYMPHOCYTES (test code = 67462-0) 3.02 K/UL See_Comment [Automated messa ge] The system which generated this result transmitted reference range: 1.00-4.00 K/UL. The reference range was not used to interpret this result as normal/abnormal. ABSOLUTE MONOCYTES (test code = 00933-0) 0.55 K/UL See_Comment [Automated messa ge] The system which generated this result transmitted reference range: 0.20-1.00 K/UL. The reference range was not used to interpret this result as normal/abnormal. ABSOLUTE NEUTROPHILS (test code = 39351-0) 3.33 K/UL See_Comment [Automated messa ge] The system which generated this result transmitted reference range: 1.50-7.50 K/UL. The reference range was not used to interpret this result as normal/abnormal. BASOPHILS (test code = 87049-8) 2.0 % EOSINOPHILS (test code = 51917-2) 4.3 % HEMATOCRIT (test code = 79013-3) 36.4 % See_Comment [Automated messa ge] The system which generated this result transmitted reference range: 34.0-45.0 %. The reference range was not used to interpret this result as normal/abnormal. HEMOGLOBIN (test code = 718-7) 12.4 G/DL See_Comment [Automated messa ge] The system which generated this result transmitted reference range: 11.5-15.5 G/DL. The reference range was not used to interpret this result as normal/abnormal. LYMPHOCYTES (test code = 31587-4) 40.6 % MCH (test code = 36960-7) 31.0 PG See_Comment [Automated messa ge] The system which generated this result transmitted reference range: 25.0-33.0 PG. The reference range was not used to interpret this result as normal/abnormal. MCHC (test code = 32517-9) 34.1 G/DL See_Comment [Automated messa ge] The system which generated this result transmitted reference range: 31.0-36.0 G/DL. The reference range was not used to interpret this result as normal/abnormal. MCV (test code = 79325-2) 91.0 fL See_Comment [Automated messa ge] The system which generated this result transmitted reference range: 80.0-99.0 fL. The reference range was not used to interpret this result as normal/abnormal. MONOCYTES (test code = 74037-6) 7.4 % NEUTROPHILS (test code = 20748-0) 44.8 % PLATELET COUNT (test code = 67759-5) 460 K/UL See_Comment H [Automated messa ge] The system which generated this result transmitted reference range: 130-400 K/UL. The reference range was not used to interpret this result as normal/abnormal. RBC (test code = 84862-2) 4.00 M/UL See_Comment [Automated messa ge] The system which generated this result transmitted reference range: 3.80-5.40 M/UL. The reference range was not used to interpret this result as normal/abnormal. RDW (test code = 08716-6) 13.7 % See_Comment [Automated messa ge] The system which generated this result transmitted reference range: 11.5-15.0 %. The reference range was not used to interpret this result as normal/abnormal. WBC (test code = 29695-2) 7.4 K/UL See_Comment [Automated messa ge] The system which generated this result transmitted reference range: 3.5-11.0 K/UL. The reference range was not used to interpret this result as normal/abnormal. DEXA, BONE DENSITY AXIAL SKELEDEXA, BONE DENSITY AXIAL SKELE
[2024-06-29 03:26] LABS: Absolute Basophils 0.1 K/uL (0-0.5); Absolute Eosinophils 0.1 K/uL (0-0.5); Absolute Lymphocytes (CBC) 1.5 K/uL (0.7-4.9); Absolute Monocytes 0.9 K/uL (0.1-1.3); Basophils % 0.5 % (0-1.3); Eosinophils % 0.8 % (0-4.4); Hematocrit 19.4 % (36.0-45.0); Hemoglobin 6.4 g/dL (12.0-15.0); Lymphocytes % 11.3 % (15.3-44.8); MCH 25.6 pg (27.0-35.0); MCHC 33.1 g/dL (32.0-36.0); MCV 77.4 fL (80-100); MPV 6.8 fL (7.6-11.3); Monocytes % 6.8 % (3.3-12.3); Neutrophils % 80.6 % (41.7-73.7); Nucleated Red Blood Cells % 0.1 % (0-0); Platelets 757 thou/uL (152-406); Red Cell Distribution Width 18.3 % (12.1-15.2)
[2024-06-29 03:41] LABS: Troponin High Sensitivity 9.2 pg/mL (<58.9)
--- NOTE | 2024-06-29 04:31 | ER ---
Nurse's Notes [facility] Name: Robina Grey Age: 83 yrs Sex: Female : 1940 Arrival Date: 06/29/2024 Time: 02:05 Bed 19 Private MD: Diagnosis: Somatic anemia, ;Anemia of chronic disease Presentation: 06/29 02:34 Chief complaint: Patient states: notified of low HGB by primary. no symptoms reported lg3 at this time. Coronavirus screen: Client denies travel out of the [place] in the last 14 days. At this time, the client does not indicate any symptoms associated with coronavirus-19. Ebola Screen: No symptoms or risks identified at this time. Initial Sepsis Screen: Does the patient meet any 2 criteria? No. Patient's initial sepsis screen is negative. Does the patient have a suspected source of infection? No. Patient's initial sepsis screen is negative. Risk Assessment: Do you want to hurt yourself or someone else? Patient reports no desire to harm self or others. Onset of symptoms was June 29, 2024. 02:34 Method Of Arrival: Wheelchair lg3 02:34 Acuity: EMERSON 3 lg3 Triage Assessment: 02:36 General: Appears in no apparent distress. comfortable, Behavior is calm, cooperative. lg3 Pain: Denies pain. EENT: No deficits noted. No signs and/or symptoms were reported regarding the EENT system. Neuro: No deficits noted. Booker Agitation-Sedation Scale (RASS): 0 - Alert and Calm Level of Consciousness is awake, alert, obeys commands, Oriented to person, place, time, situation. Cardiovascular: No deficits noted. Denies chest pain, shortness of breath, Capillary refill < 3 seconds Clubbing of nail beds is absent JVD is absent Patient's skin is warm and dry. Respiratory: No deficits noted. Airway is patent Respiratory effort is even, unlabored, Respiratory pattern is regular, symmetrical. GI: No deficits noted. No signs and/or symptoms were reported involving the gastrointestinal system. : No deficits noted. No signs and/or symptoms were reported regarding the genitourinary system. Derm: No deficits noted. No signs and/or symptoms reported regarding the dermatologic system. Skin is intact, is healthy with good turgor, Skin is dry, Skin is normal, Skin temperature is warm. Musculoskeletal: No deficits noted. No signs and/or symptoms reported regarding the musculoskeletal system. Circulation, motion, and sensation intact. Range of motion: intact in all extremities. Historical: - Allergies: 02:36 No Known Allergies; lg3 - Home Meds: 02:36 amiodarone 200 mg oral tablet [Active]; Eliquis 5 mg oral tablet [Active]; fluticasone lg3 propionate 50 mcg/actuation intranasal spray, suspension [Active]; Fosamax 70 mg Oral tablet [Active]; gabapentin 300 mg oral capsule [Active]; levothyroxine 50 mcg tablet [Active]; lisinopril 40 mg Oral tablet [Active]; montelukast 10 mg oral tablet [Active]; omeprazole 20 mg Oral capsule,delayed release (e.c.) [Active]; sertraline oral [Active]; tramadol 50 mg Oral tablet [Active]; - PMHx: 02:36 AFIB; Osteoporosis; neuropathy; Hypothyroidism; GERD (Hypothyroidism); Depressive lg3 disorder; Anemia; Lung Cancer; TB (Lung Cancer); Hypertensive disorder; prediabetes; - PSHx: 02:36 cataract (prediabetes); Ligation of fallopian tube; lg3 - Immunization history:: Adult Immunizations up to date. - Infectious Disease History:: Denies. - Social history:: Smoking status: Patient denies any tobacco usage or history of. Patient/guardian denies using alcohol, street drugs. - Family history:: not pertinent. Screenin:17 [facility] ED Fall Risk Assessment (Adult) History of falling in the last 3 months, bm8 including since admission Yes- fall prone (multiple falls) (3 pts) Confusion or Disorientation No (0 pts) Intoxicated or Sedated No (0 pts) Impaired Gait Yes (1 pt) Mobility Assist Device Used Yes (1 pt) Altered Elimination Yes (1 pt) Score/Fall Risk Level 3 or more points = High Risk Oriented to surroundings, Maintained a safe environment, Educated pt \T\ family on fall prevention, incl call for assistance when getting out of bed, Assessed \T\ reinforced patient's understanding of fall precautions, Hourly rounding (assess needs \T\ fall precautionary measures) done, Used ambulatory aids as needed (educated on \T\ assisted with), Used gait belt as appropriate Implemented a Fall Risk Plan of Care. Abuse screen: Denies threats or abuse. Nutritional screening: No deficits noted. Tuberculosis screening: No symptoms or risk factors identified. Assessment: 04:24 Reassessment: No changes from previously documented assessment. dd2 05:17 Reassessment: Patient appears in no apparent distress at this time. Patient and/or bm8 family updated on plan of care and expected duration. Pain level reassessed. Patient is alert, oriented x 3, equal unlabored respirations, skin warm/dry/pink. Patient denies pain at this time. Patient states feeling better. General: Appears in no apparent distress. comfortable, Behavior is calm, cooperative, appropriate for age. Pain: Denies pain. Neuro: No deficits noted. Level of Consciousness is awake, alert, obeys commands, Oriented to person, place, time, situation, Appropriate for age. Respiratory: Airway is patent Respiratory effort is even, unlabored, Respiratory pattern is regular, symmetrical, PT ON 4 L NC. Vital Signs: 02:34 BP 123 / 61; Pulse 65; Resp 18 S; Temp 98.6(O); Pulse Ox 79% on R/A; Weight 58.97 kg lg3 (R); Height 5 ft. 2 in. (R); Pain 0/10; 03:28 BP 122 / 58; Pulse 66; Resp 19; Pulse Ox 99% on 4 lpm NC; dd2 04:23 BP 114 / 57; Pulse 65; Resp 18; Pulse Ox 100% on 4 lpm NC; dd2 05:17 BP 113 / 58; Pulse 65; Resp 17; Temp 98.6; Pulse Ox 100% on 4 lpm NC; Pain 0/10; bm8 02:34 Body Mass Index 23.78 (58.97 kg, 157.48 cm) lg3 02:34 Pain Scale: Adult lg3 05:17 Pain Scale: Adult bm8 [place] Coma Score: 03:17 Eye Response: spontaneous(4). Motor Response: obeys commands(6). Verbal Response: bm8 oriented(5). Total: 15. 04:32 Eye Response: spontaneous(4). Motor Response: obeys commands(6). Verbal Response: sp4 oriented(5). Total: 15. 05:17 Eye Response: spontaneous(4). Motor Response: obeys commands(6). Verbal Response: bm8 oriented(5). Total: 15. ED Course: 02:12 Patient arrived in ED. gm2 02:14 Jordi Rodriguez MD is Attending Physician. sp4 02:36 Triage completed. lg3 02:36 Arm band placed on right wrist. lg3 03:05 Prosper Holguin RN is Primary Nurse. bm8 03:06 Primary Nurse role handed off by Prosper Holguin RN dd2 03:06 ALEJA TAN RN is Primary Nurse. dd2 03:17 Patient has correct armband on for positive identification. Bed in low position. Call bm8 light in reach. Side rails up X2. Adult w/ patient. Client placed on continuous cardiac and pulse oximetry monitoring. NIBP monitoring applied. preform plate maker on. Pulse ox on. NIBP on. Door closed. Noise minimized. Warm blanket given. Pillow given. Verbal reassurance given. Head of bed elevated. 03:17 No provider procedures requiring assistance completed. Initial lab(s) drawn, by co, bm8 sent to lab. EKG done, by ED staff, reviewed by Jordi Rodriguez MD T\T\S collected, blood band applied to patient. Inserted saline lock: 20 gauge in right antecubital area, using aseptic technique. Blood collected. Flushed with 10 mL NS. Oxygen administration via nasal cannula \T\ 4L/min Response to oxygen therapy: symptoms improved. 04:29 Mg Hernandez MD is Hospitalizing Provider. sp4 05:17 Provided Education on: NEED FOR ADMISSION. bm8 05:17 Patient admitted, IV remains in place. bm8 Administered Medications: 05:17 Drug: Epogen Sub-Q 05666 units Sub-Q once Route: Sub-Q; Site: abdomen; bm8 05:17 Follow up: Response: No adverse reaction bm8 Medication: 03:17 VIS not applicable for this client. bm8 Outcome: 04:31 Decision to Hospitalize by Provider. sp4 05:17 Admitted to ER Hold. Please see [facility] for further documentation. bm8 05:17 Condition: stable 05:17 Instructed on the need for admit, Demonstrated understanding of instructions, follow-up care, 15:42 Patient left the ED. iw Signatures: Shara Steele RN RN iw AbleAileen RN RN lg3 Potepalov, Sergey, MD MD sp4 Cora Segal gm2 Prosper Holguin, RN RN bm8 ALEJA TAN RN RN dd2
--- NOTE | 2024-06-29 04:31 | EDPHYS ---
Physician Documentation [facility] Name: Robina Grey Age: 83 yrs Sex: Female : 1940 Arrival Date: 06/29/2024 Time: 02:05 Bed 19 Private MD: ED Physician Jordi Rodriguez HPI: 06/29 04:29 This 83 yrs old Female presents to ER via Wheelchair with complaints of sp4 Abnormal Lab Results. 04:31 83-year-old female presents with complaint of generalized weakness and reported her sp4 hemoglobin is low. Medical history consists of atrial fibrillation, osteoporosis, neuropathy, hypothyroidism, GERD, depressive disorder.. Historical: - Allergies: 02:36 No Known Allergies; lg3 - Home Meds: 02:36 amiodarone 200 mg oral tablet [Active]; Eliquis 5 mg oral tablet [Active]; fluticasone lg3 propionate 50 mcg/actuation intranasal spray, suspension [Active]; Fosamax 70 mg Oral tablet [Active]; gabapentin 300 mg oral capsule [Active]; levothyroxine 50 mcg tablet [Active]; lisinopril 40 mg Oral tablet [Active]; montelukast 10 mg oral tablet [Active]; omeprazole 20 mg Oral capsule,delayed release (e.c.) [Active]; sertraline oral [Active]; tramadol 50 mg Oral tablet [Active]; - PMHx: 02:36 AFIB; Osteoporosis; neuropathy; Hypothyroidism; GERD (Hypothyroidism); Depressive lg3 disorder; Anemia; Lung Cancer; TB (Lung Cancer); Hypertensive disorder; prediabetes; - PSHx: 02:36 cataract (prediabetes); Ligation of fallopian tube; lg3 - Immunization history:: Adult Immunizations up to date. - Infectious Disease History:: Denies. - Social history:: Smoking status: Patient denies any tobacco usage or history of. Patient/guardian denies using alcohol, street drugs. - Family history:: not pertinent. ROS: 04:32 Constitutional: Negative for fever, chills, and weight loss, positive generalized sp4 weakness, positive pallor 04:32 All other systems are negative, Exam: 04:32 Constitutional: This is a well developed, well nourished patient who is awake, alert, sp4 frail elderly female, pale appearing Head/Face: Normocephalic, atraumatic. Eyes: Pupils equal round and reactive to light, extra-ocular motions intact. Lids and lashes normal. Conjunctiva and sclera are not injected. Cornea within normal limits. Periorbital areas with no swelling, redness, or edema. ENT: Nares patent. No nasal discharge, no septal abnormalities noted. Tympanic membranes are normal and external auditory canals are clear. Oropharynx with no redness, swelling, or masses, exudates, or evidence of obstruction, uvula midline. Mucous membranes moist. Neck: Trachea midline, no thyromegaly or masses palpated, and no cervical lymphadenopathy. Supple, full range of motion without nuchal rigidity, or vertebral point tenderness. Chest/axilla: Normal chest wall appearance and motion. Nontender with no deformity. No lesions are appreciated. Cardiovascular: Regular rate and rhythm with a normal S1 and S2. No gallops, murmurs, or rubs. Normal PMI, no JVD. No pulse deficits. Respiratory: Lungs have equal breath sounds bilaterally, clear to auscultation and percussion. No rales, rhonchi or wheezes noted. No increased work of breathing, no retractions or nasal flaring. Abdomen/GI: Soft, with normal bowel sounds. No distension or tympany. No guarding or rebound. No evidence of tenderness throughout. Back: No spinal tenderness. No costovertebral tenderness. Skin: Warm, dry with normal turgor. Normal color with no rashes, no lesions, and no evidence of cellulitis. MS/ Extremity: Pulses equal, no cyanosis. Neurovascular intact. Full, normal range of motion. Neuro: Awake and alert, GCS 15, oriented to person, place, time, and situation. Cranial nerves II-XII grossly intact. Motor strength 5/5 in all extremities. Sensory grossly intact. Psych: Awake, alert, with orientation to person, place and time. Behavior, mood, and affect are within normal limits 04:32 ECG was reviewed by the Attending Physician. EKG at 0 321 normal sinus rhythm rate 67, low voltage QRS Vital Signs: 02:34 BP 123 / 61; Pulse 65; Resp 18 S; Temp 98.6(O); Pulse Ox 79% on R/A; Weight 58.97 kg lg3 (R); Height 5 ft. 2 in. (R); Pain 0/10; 03:28 BP 122 / 58; Pulse 66; Resp 19; Pulse Ox 99% on 4 lpm NC; dd2 04:23 BP 114 / 57; Pulse 65; Resp 18; Pulse Ox 100% on 4 lpm NC; dd2 05:17 BP 113 / 58; Pulse 65; Resp 17; Temp 98.6; Pulse Ox 100% on 4 lpm NC; Pain 0/10; bm8 02:34 Body Mass Index 23.78 (58.97 kg, 157.48 cm) lg3 02:34 Pain Scale: Adult lg3 05:17 Pain Scale: Adult bm8 [place] Coma Score: 03:17 Eye Response: spontaneous(4). Motor Response: obeys commands(6). Verbal Response: bm8 oriented(5). Total: 15. 04:32 Eye Response: spontaneous(4). Motor Response: obeys commands(6). Verbal Response: sp4 oriented(5). Total: 15. 05:17 Eye Response: spontaneous(4). Motor Response: obeys commands(6). Verbal Response: bm8 oriented(5). Total: 15. MDM: 02:15 Patient medically screened. sp4 04:32 Differential Diagnosis altered mental status, sepsis, flu. Data reviewed: vital signs, sp4 nurses notes, old medical records, lab test result(s), EKG, radiologic studies, plain films. 04:36 Consideration of Admission/Observation Patient was admitted/placed on observation. sp4 Escalation of care including admission/observation considered. Management of patient was discussed with the following: Hospitalist: David BULLARD . ED course: Patient has basically symptomatic anemia with hemoglobin 6.4 but patient is adamant she does not want blood products. Patient requests that means of anemia management such as Epogen . At this time we will request admission to internal medicine for consideration of other management of anemia. Patient was warned that she can suffer from acute ME secondary to low hemoglobin. . 06/29 02:14 Order name: CBC with Diff; Complete Time: 03:38 sp4 06/29 02:14 Order name: Type And Screen; Complete Time: 05:04 sp4 06/29 02:14 Order name: BMP; Complete Time: 03:51 sp4 06/29 02:15 Order name: NT PRO-BNP; Complete Time: 03:51 sp4 06/29 02:15 Order name: Troponin HS; Complete Time: 03:51 sp4 06/29 04:38 Order name: Urinalysis w/ reflexes; Complete Time: 07:52 EDMS 06/29 04:39 Order name: CBC with Automated Diff EDMS 06/29 04:39 Order name: CBC with Automated Diff EDMS 06/29 04:39 Order name: Comprehensive Metabolic Panel EDMS 06/29 04:39 Order name: Comprehensive Metabolic Panel EDMS 06/29 08:38 Order name: ABO/RH no charge EDMS 06/29 08:45 Order name: Iron EDMS 06/29 11:20 Order name: CBC with Automated Diff EDMS 06/29 12:10 Order name: Comprehensive Metabolic Panel EDMS 06/29 12:10 Order name: Magnesium EDMS 06/29 12:10 Order name: Iron EDMS 06/29 12:10 Order name: Vitamin B12 Level EDMS 06/29 12:14 Order name: Retic Count EDMS 06/29 02:14 Order name: Saline Lock; Complete Time: 03:13 sp4 06/29 02:15 Order name: Cardiac monitoring; Complete Time: 03:17 sp4 06/29 02:15 Order name: EKG - Nurse/Tech; Complete Time: 03:17 sp4 06/29 02:15 Order name: Labs collected and sent; Complete Time: 03:17 sp4 06/29 02:15 Order name: O2 Per Protocol; Complete Time: 03:17 sp4 06/29 02:15 Order name: O2 Sat Monitoring; Complete Time: 03:17 sp4 EC:32 Rate is 67 beats/min. Rhythm is regular, Normal Sinus Rhythm. QRS [place] is Normal. [place] sp4 interval is normal. QRS interval is normal. QT interval is normal. No Q waves. T waves are Normal. No ST changes noted. Clinical impression: No evidence of ischemia. Interpreted by me. Reviewed by me. Administered Medications: 05:17 Drug: Epogen Sub-Q 85704 units Sub-Q once Route: Sub-Q; Site: abdomen; bm8 05:17 Follow up: Response: No adverse reaction bm8 Disposition Summary: 06/29/24 04:31 Hospitalization Ordered Notes: Hospitalization Status: Inpatient Admission sp4 Provider: Mg Hernandez spTeodoro Condition: Stable sp4 Problem: new sp4 Symptoms: have improved sp4 Bed/Room Type: Standard sp4 Location: Telemetry/MedSurg (Inpatient)(06/29/24 13:28) bd Room Assignment: 402(06/29/24 13:28) bd Diagnosis - Somatic anemia, sp4 - Anemia of chronic disease sp4 Forms: - Medication Reconciliation Form sp4 - SBAR form sp4 - Leadership Thank You Letter sp4 Signatures: Dispatcher [employer] EDMS Bharti Pacheco bd Aileen Cratf RN RN lg3 Angelica Motley rv1 Jordi Rodriguez MD MD sp4 Prosper Holguin RN RN bm8 Corrections: (The following items were deleted from the chart) 02:14 02:14 CBC+H.LAB.BRZ ordered. EDMS EDMS 02:14 02:14 TYPE AND SCREEN+BB.LAB.BRZ ordered. EDMS EDMS 02:14 02:14 BASIC METABOLIC PANEL+C.LAB.BRZ ordered. EDMS EDMS 04:43 04:31 Telemetry/MedSurg (Inpatient) sp4 rv1 04:43 04:31 sp4 rv1 13:28 04:43 [facility] ER HOLD rv1 bd 13:28 04:43 ERHOLD- rv1 bd
--- NOTE | 2024-06-29 04:39 | P.HP ---
Certification for Inpatient Patient admitted to: Observation With expected LOS: <2 Midnights Practitioner: I am a practitioner with admitting privileges, knowledge of patient current condition, hospital course, and medical plan of care. Services: Services provided to patient in accordance with Admission requirements found in Title 42 Section 412.3 of the Code of Federal Regulations Patient History Date of Service: 06/29/24 Reason for admission: Dizziness, low Hb History of Present Illness: 83 yrs old Female with past medical history of atrial fibrillation on Eliquis, osteoporosis, neuropathy, hypothyroidism, GERD, depression, history of lung cancer, hypertension, prediabetes, anemia and history of cataract presents to ER with complaints of generalized weakness and dizziness and Abnormal Lab Results. Patient has been followed as an outpatient with the PCP and had lab work send found to have low hemoglobin and was sent over to here for further management. Patient denies any chest pain or shortness of breath. No fever or chills. No bleeding. Denies any melena or hematemesis. Patient was assessed in the ER and was admitted for further management of anemia symptomatic Allergies No Known Allergies Allergy (Verified 05/30/24 08:15) Home medications list reviewed: Yes Home Medications: Alendronate Sodium/Vitamin D3 [Fosamax Plus D 70 mg-2,800 Iu] 1 each PO Q7D 05/27/24 Cholecalciferol (Vitamin D3) [Vitamin D3] 1,000 unit PO BEDTIME 05/27/24 Fluticasone [Flonase 50MCG Nasal [place]*] 1 spray NS DAILY 05/27/24 Gabapentin 300 mg PO TID 05/27/24 Levothyroxine [Synthroid*] 50 mcg PO [id number] 05/27/24 Lisinopril [Zestril] 40 mg PO BEDTIME 05/27/24 Montelukast [Singulair*] 10 mg PO DAILY 05/27/24 Omeprazole 20 mg PO DAILY 05/27/24 Sertraline [Zoloft*] 50 mg PO BEDTIME 05/27/24 Amiodarone HCl [Cordarone*] 200 mg PO BID #180 tab 06/23/24 Apixaban [Eliquis] 5 mg PO BID #180 tab 06/23/24 Ensure Enlive 237 ml PO BID #30 can 06/23/24 - Past Medical/Surgical History Past Medical History: Reviewed- Non-Contributory Past Surgical History: Reviewed- Non-Contributory - Family History Family History: Reviewed- Non-Contributory - Social History Smoking Status: Never smoker Alcohol use: No CD- Drugs: No Caffeine use: No Review of Systems 10-point ROS is otherwise unremarkable Physical Examination - Vital Signs Temperature: 97.2 F Blood Pressure: 126/75 Pulse: 76 Respirations: 18 Pulse Ox (%): 94 - Physical Exam General: Alert, In no apparent distress, Oriented x3 HEENT: Atraumatic, Normocephalic Neck: Supple Respiratory: Clear to auscultation bilaterally, Normal air movement Cardiovascular: Regular rate/rhythm, Normal S1 S2 Capillary refill: <2 Seconds Gastrointestinal: Soft and benign, Non-distended, W/out hepatosplenomegaly Musculoskeletal: No clubbing, No swelling Integumentary: No rashes, No breakdown Neurological: Normal speech, Normal strength at 5/5 x4 extr, Cranial nerves 3-12 intact Lymphatics: No axilla or inguinal lymphadenopathy - Studies Laboratory Data (last 24 hrs) 06/29/24 06/29/24 03:13 03:13 WBC 13.60 H Hgb 6.4 L Hct 19.4 L Plt Count 757 H Sodium 132 L Potassium 3.0 L BUN 16 Creatinine 0.84 Glucose 98 Assessment and Plan - Plan Anemia of chronic disease/nutritional Hypochromic microcytic Will get an iron level and TIBC Discussed in detail with the patient regarding blood transfusion Patient adamantly refused blood transfusion Monitor closely Denies any bleeding Hyponatremia Hypokalemia Will replace electrolytes and monitor closely Hypertension Antihypertensives titrated Continue home medications and titrate as needed Hyperlipidemia Continue statin History of atrial fibrillation Monitor closely under telemetry On Eliquis Will hold for now GI/DVT prophylaxis Advanced directive full code Discharge Plan: Home Plan to discharge in: 48 Hours - Advance Directives Does patient have a Living Will: No Does patient have a Durable POA for Healthcare: No - Code Status/Comfort Care Code Status: Full Code Time Spent Managing Pts Care (In Minutes): 48
[2024-06-29 07:29] LABS: Specific Gravity 1.011 (1.005-1.030); Sqamous Epithelial <5 /HPF (None Seen); Urine Bacteria None Seen /HPF (<20); Urine Bilirubin NEGATIVE (Negative); Urine Blood Negative (Negative); Urine Clarity Turbid (Clear); Urine Color Light-Yellow (Yellow); Urine Culture Reflex Order REFLEXED; Urine Glucose NEGATIVE (Negative); Urine Ketones NEGATIVE (Negative); Urine Microscopic Reflex YN ORDER UMIC; Urine Mucus Slight /HPF (None Seen); Urine Nitrite NEGATIVE (Negative); Urine Protein TRACE (Negative); Urine RBC None Seen /HPF (None Seen); Urine Urobilinogen Normal (Normal)
[2024-06-29] MEDS: EPOETIN ALFA-EPBX 10,000 UNIT/ML VIAL ONE (08:00)
[2024-06-29] MEDS ORDERED: KCL 20 MEQ/100 mL IVPB 100 ML IV ONE (08:21)
[2024-06-29] MEDS: KCL 20 MEQ/100 mL IVPB 20 MEQ/100 ML BAG IV SCH (09:00)
[2024-06-29] MEDS: EPOETIN ALFA 10,000 UNIT/ML VIAL SQ ONE (09:15)
[2024-06-29] MEDS ORDERED: EPOETIN ALFA-EPBX 10,000 UNIT/ML VIAL SQ ONE (09:45)
[2024-06-29 11:18] LABS: Absolute Basophils 0.1 K/uL (0-0.5); Absolute Eosinophils 0.1 K/uL (0-0.5); Absolute Lymphocytes (CBC) 1.5 K/uL (0.7-4.9); Absolute Monocytes 1.1 K/uL (0.1-1.3); Basophils % 0.4 % (0-1.3); Eosinophils % 0.6 % (0-4.4); Hematocrit 21.3 % (36.0-45.0); Hemoglobin 6.6 g/dL (12.0-15.0); Lymphocytes % 9.9 % (15.3-44.8); MCH 24.2 pg (27.0-35.0); MCHC 30.9 g/dL (32.0-36.0); MCV 78.5 fL (80-100); MPV 6.9 fL (7.6-11.3); Monocytes % 7.4 % (3.3-12.3); Neutrophils % 81.7 % (41.7-73.7); Platelets 761 thou/uL (152-406); RBC Red Blood Cell Count 2.71 M/uL (3.86-4.86); Red Cell Distribution Width 17.8 % (12.1-15.2)
[2024-06-29] MEDS: SOD FERRIC GLUC COMPLX/SUCROSE 125 MG in NA CHLORIDE 0.9% 100 ML IV SCH (11:30)
[2024-06-29 12:07] LABS: AST/SGOT 15 U/L (15-37); Albumin 1.6 g/dL (3.4-5.0); Albumin/Globulin Ratio 0.4 (1.1-1.8); Alkaline Phosphatase 122 U/L (45-117); Anion Gap 8.2 mEq/L (5.0-15.0); BUN Blood Urea Nitrogen 12 mg/dL (7-18); Bicarbonate 30 mEq/L (21-32); Bilirubin Total 0.4 mg/dL (0.2-1.0); Globulin 4.1 g/dL (2.3-3.5); Glomerular Filtration Rate 85 ml/min (=/>90); Glucose Level 97 mg/dL (74-106); Magnesium 1.4 mg/dL (1.6-2.4); Potassium 4.2 mEq/L (3.5-5.1); Protein, Total 5.7 g/dL (6.4-8.2); Sodium Level 135 mEq/L (136-145)
[2024-06-29 12:10] LABS: ALT/SGPT < 14 U/L (13-56)
[2024-06-29 12:13] LABS: Percent Reticulocyte Count 2.39 % (0.4-2.05)
[2024-06-29] MEDS: ACETAMINOPHEN 325 MG TABLET PO PRN (16:31)
--- NOTE | 2024-06-29 22:10 | P.PN ---
Date of Service: 06/29/24 Subjective Patient is doing well but she does want a blood transfusion. Continue with clinical management at this time. Physical Examination - Vital Signs Reviewed - Physical Exam General: Alert, In no apparent distress, Oriented x3 Respiratory: Clear to auscultation bilaterally, Normal air movement Cardiovascular: Regular rate/rhythm, Normal S1 S2 Gastrointestinal: Soft and benign, Non-distended, W/out hepatosplenomegaly Musculoskeletal: No clubbing, No swelling Integumentary: No rashes, No breakdown Neurological: No focal deficits Assessment and Plan - Assessment/Plan Assessment/Plan 1. Acute blood loss anemia; Patient with severe anemia with a hemoglobin of 6.8. Patient's hemoglobin has been decreasing even though she is on Procrit. Patient refuses blood transfusion but will try other measures to try to get her hemoglobin up and keep it from dropping. Reticulocyte count is elevated. 2.Hyponatremia; hypokalemia Will replace electrolytes and monitor closely 3. Hypertension Antihypertensives titrated; Continue home medications and titrate as needed 4. Hyperlipidemia; Continue statin 5. History of atrial fibrillation; Monitor closely under telemetry. On Eliquis-W ill hold for now GI/DVT prophylaxis Advanced directive full code Discharge Plan: Home Plan to discharge in: 48 Hours - Advance Directives Does patient have a Living Will: No Does patient have a Durable POA for Healthcare: No - Code Status/Comfort Care Code Status: Full Code Time Spent Managing Pts Care (In Minutes): 30
[2024-06-29] MEDS: CYANOCOBALAMIN 1000MCG/ML INJ IM ONE (22:26)
[2024-06-30 07:34] LABS: Absolute Basophils 0.1 K/uL (0-0.5); Absolute Eosinophils 0.1 K/uL (0-0.5); Absolute Lymphocytes (CBC) 1.5 K/uL (0.7-4.9); Absolute Monocytes 0.8 K/uL (0.1-1.3); Absolute Neutrophil 8.3 K/uL (1.8-8.0); Basophils % 0.5 % (0-1.3); Eosinophils % 0.8 % (0-4.4); Hematocrit 19.8 % (36.0-45.0); Hemoglobin 6.5 g/dL (12.0-15.0); MCH 25.6 pg (27.0-35.0); MCHC 32.8 g/dL (32.0-36.0); MCV 78.1 fL (80-100); MPV 6.8 fL (7.6-11.3); Monocytes % 7.9 % (3.3-12.3); Neutrophils % 76.8 % (41.7-73.7); Platelets 836 thou/uL (152-406); RBC Red Blood Cell Count 2.53 M/uL (3.86-4.86)
[2024-06-30 07:55] LABS: AST/SGOT 14 U/L (15-37); Albumin 1.5 g/dL (3.4-5.0); Albumin/Globulin Ratio 0.4 (1.1-1.8); Alkaline Phosphatase 109 U/L (45-117); Anion Gap 7.4 mEq/L (5.0-15.0); BUN Blood Urea Nitrogen 10 mg/dL (7-18); Bicarbonate 29 mEq/L (21-32); Bilirubin Total 0.4 mg/dL (0.2-1.0); Globulin 3.9 g/dL (2.3-3.5); Glomerular Filtration Rate 87 ml/min (=/>90); Glucose Level 86 mg/dL (74-106); Potassium 3.4 mEq/L (3.5-5.1); Protein, Total 5.4 g/dL (6.4-8.2); Sodium Level 135 mEq/L (136-145)
[2024-06-30 07:56] LABS: ALT/SGPT < 14 U/L (13-56)
[2024-06-30] MEDS: POTASSIUM CL SA 10 MEQ TAB PO ONE ×2 (09:10→20:01)
[2024-06-30] MEDS: MULTIVITAMINS IV SCH (09:10)
[2024-06-30] MEDS: [UNRECOGNIZED DRUG - OTHER] IV SCH (09:10)
[2024-06-30] MEDS: FOLIC ACID IV SCH (09:10)
[2024-06-30] MEDS: THIAMINE HCL IV SCH (09:10)
[2024-06-30] MEDS: SOD FERRIC GLUC COMPLX/SUCROSE 125 MG in NA CHLORIDE 0.9% 100 ML IV SCH (10:02)
[2024-06-30] MEDS: ALBUMIN HUMAN 25% 100 ML IV ONE (11:31)
--- NOTE | 2024-06-30 12:22 | EKG ---
Test Date: 2024-06-29 Test Time: 03:21:28 Molder Shoulder Pad: ERASMO MEASUREMENT RESULTS: Intervals: Rate: 67 MD: 148 QRSD: 84 QT: 436 QTc: 460 [place]: P: 67 MD: 148 QRS: 89 T: 13 INTERPRETIVE STATEMENTS: Normal sinus rhythm Cannot rule out Anterior infarct, age undetermined Abnormal ECG Compared to ECG 06/16/2024 11:32:16 Left-axis deviation no longer present Myocardial infarct finding still present Electronically Signed On 06-30-24 12:17:51 CDT by Wade Diego
[2024-06-30] MEDS ORDERED: SODIUM CHLORIDE 0.9% 10ML INJ IV PRN (12:48)
[2024-06-30] MEDS ORDERED: MAGNES/ALUMIN/SIMET 30ML UCUP PO PRN (13:02)
[2024-06-30] MEDS: PANTOPRAZOLE 40 MG INJ IVP SCH (20:01)
[2024-06-30] MEDS: ENSURE HIGH PROTEIN 237 ML CAN PO SCH (20:59)
[2024-06-30] MEDS: ZOLPIDEM TARTRATE 5 MG TABLET PO PRN (21:54)
[2024-07-01] MEDS: ONDANSETRON 4 MG/2 ML VIAL IV PRN (00:01)
--- NOTE | 2024-07-01 00:04 | P.PN ---
Date of Service: 06/30/24 Subjective Hemoglobin remained stable. Will resume physical therapy. Hemoglobin will slowly improve. As long as it does not decrease we can continue with current treatment plan. If hemoglobin decreases we will need to probably start hospice care. Physical Examination - Vital Signs Reviewed - Physical Exam General: Alert, In no apparent distress, Oriented x3 Respiratory: Clear to auscultation bilaterally, Normal air movement Cardiovascular: Regular rate/rhythm, Normal S1 S2 Gastrointestinal: Soft and benign, Non-distended, W/out hepatosplenomegaly Musculoskeletal: No clubbing, No swelling Integumentary: No rashes, No breakdown Neurological: No focal deficits Assessment and Plan - Assessment/Plan Assessment/Plan 1. Acute blood loss anemia; Patient with severe anemia with a hemoglobin of 6.8. Patient's hemoglobin has been decreasing even though she is on Procrit. Patient refuses blood transfusion but will try other measures to try to get her hemoglobin up and keep it from dropping. Reticulocyte count is elevated. Hemoglobin remained stable at this time. Continue with iron transfusion and repeat H&H in the morning. 2.Hyponatremia; hypokalemia Will replace electrolytes and monitor closely 3. Hypertension Antihypertensives titrated; Continue home medications and titrate as needed 4. Hyperlipidemia; Continue statin 5. History of atrial fibrillation; Monitor closely under telemetry. On Eliquis- Will hold for now GI/DVT prophylaxis Advanced directive full code Discharge Plan: Home Plan to discharge in: 48 Hours - Advance Directives Does patient have a Living Will: No Does patient have a Durable POA for Healthcare: No - Code Status/Comfort Care Code Status: Full Code Time Spent Managing Pts Care (In Minutes): 30
[2024-07-01 08:11] LABS: Absolute Basophils 0.2 K/uL (0-0.5); Absolute Eosinophils 0.1 K/uL (0-0.5); Absolute Lymphocytes (CBC) 1.1 K/uL (0.7-4.9); Absolute Monocytes 0.8 K/uL (0.1-1.3); Absolute Neutrophil 9.1 K/uL (1.8-8.0); Basophils % 1.8 % (0-1.3); Eosinophils % 1.1 % (0-4.4); Hematocrit 19.4 % (36.0-45.0); Hemoglobin 6.3 g/dL (12.0-15.0); Lymphocytes % 9.5 % (15.3-44.8); MCH 25.6 pg (27.0-35.0); MCHC 32.5 g/dL (32.0-36.0); MCV 78.7 fL (80-100); MPV 6.7 fL (7.6-11.3); Monocytes % 7.4 % (3.3-12.3); Neutrophils % 80.2 % (41.7-73.7); Nucleated Red Blood Cells % 0.1 % (0-0); Platelets 840 thou/uL (152-406); RBC Red Blood Cell Count 2.46 M/uL (3.86-4.86); Red Cell Distribution Width 18.3 % (12.1-15.2)
[2024-07-01 08:23] LABS: AST/SGOT 11 U/L (15-37); Albumin 1.8 g/dL (3.4-5.0); Albumin/Globulin Ratio 0.5 (1.1-1.8); Alkaline Phosphatase 106 U/L (45-117); Anion Gap 8.4 mEq/L (5.0-15.0); BUN Blood Urea Nitrogen 10 mg/dL (7-18); Bicarbonate 28 mEq/L (21-32); Bilirubin Total 0.3 mg/dL (0.2-1.0); Globulin 3.8 g/dL (2.3-3.5); Glomerular Filtration Rate 77 ml/min (=/>90); Glucose Level 88 mg/dL (74-106); Potassium 4.4 mEq/L (3.5-5.1); Protein, Total 5.6 g/dL (6.4-8.2); Sodium Level 138 mEq/L (136-145)
[2024-07-01 08:24] LABS: ALT/SGPT < 14 U/L (13-56)
[2024-07-01] MEDS: TRAMADOL HCL 50 MG TAB PO SCH (11:56)
--- NOTE | 2024-07-02 17:16 | P.PN ---
Date of Service: 07/02/24 Subjective Hemoglobin with no significant changes. Family adamant about no blood transfusion. Awaiting for swing bed placement. Patient with lung cancer with metastasis in long-term prognosis is poor. Patient does not want any chemotherapy and after swing bed placement if she is not doing well still decide on whether proceeding with hospice care. Physical Examination - Vital Signs Reviewed - Physical Exam General: Alert, In no apparent distress, Oriented x3 Respiratory: Clear to auscultation bilaterally Cardiovascular: Regular rate/rhythm, Normal S1 S2 Gastrointestinal: Soft and benign, Non-distended Musculoskeletal: No clubbing, No swelling Neurological: No focal deficits Assessment and Plan - Assessment/Plan Assessment/Plan Continue with plan of care as mentioned below: 1. Acute blood loss anemia; Patient with severe anemia with a hemoglobin of 6.3. Patient's hemoglobin has been decreasing even though she is on Procrit. Patient refuses blood transfusion but will try other measures to try to get her hemoglobin up and keep it from dropping. Reticulocyte count is elevated. Hemoglobin remained stable at this time. Continue with iron transfusion and repeat H&H in the morning. 2.Hyponatremia; hypokalemia-will replace electrolytes and monitor closely 3. Hypertension-antihypertensives titrated; Continue home medications and titrate as needed 4. Hyperlipidemia; Continue statin 5. History of atrial fibrillation; Monitor closely under telemetry. Discontinue Eliquis 6. Lung cancer with Mets; family was posted seek further treatment but at this time they are waiting for patient to get stronger prior to entertaining that. It also contemplating hospice care as patient does not want any chemotherapy. GI/DVT prophylaxis Advanced directive full code Discharge Plan: Home Plan to discharge in: 48 Hours - Advance Directives Does patient have a Living Will: No Does patient have a Durable POA for Healthcare: No - Code Status/Comfort Care Code Status: Full Code Time Spent Managing Pts Care (In Minutes): 30
--- NOTE | 2024-07-02 17:16 | P.PN ---
Date of Service: 07/01/24 Subjective Patient is doing well with no new complaints. Clinical symptoms are stable. Hemoglobin is stable. Physical Examination - Vital Signs Reviewed - Physical Exam General: Alert, In no apparent distress, Oriented x3 Respiratory: Clear to auscultation bilaterally Cardiovascular: Regular rate/rhythm, Normal S1 S2 Gastrointestinal: Soft and benign, Non-distended Musculoskeletal: No clubbing, No swelling Neurological: No focal deficits Assessment and Plan - Assessment/Plan Assessment/Plan Continue with plan of care as mentioned below: 1. Acute blood loss anemia; Patient with severe anemia with a hemoglobin of 6.3. Patient's hemoglobin has been decreasing even though she is on Procrit. Patient refuses blood transfusion but will try other measures to try to get her hemoglobin up and keep it from dropping. Reticulocyte count is elevated. Hemoglobin remained stable at this time. Continue with iron transfusion and repeat H&H in the morning. 2.Hyponatremia; hypokalemia-will replace electrolytes and monitor closely 3. Hypertension-antihypertensives titrated; Continue home medications and titrate as needed 4. Hyperlipidemia; Continue statin 5. History of atrial fibrillation; Monitor closely under telemetry. Discontinue Eliquis GI/DVT prophylaxis Advanced directive full code Discharge Plan: Home Plan to discharge in: 48 Hours - Advance Directives Does patient have a Living Will: No Does patient have a Durable POA for Healthcare: No - Code Status/Comfort Care Code Status: Full Code Time Spent Managing Pts Care (In Minutes): 30
[2024-07-03 07:04] LABS: Absolute Basophils 0.1 K/uL (0-0.5); Absolute Eosinophils 0.2 K/uL (0-0.5); Absolute Lymphocytes (CBC) 1.7 K/uL (0.7-4.9); Absolute Monocytes 0.9 K/uL (0.1-1.3); Absolute Neutrophil 10.3 K/uL (1.8-8.0); Basophils % 0.5 % (0-1.3); Eosinophils % 1.9 % (0-4.4); Hematocrit 19.8 % (36.0-45.0); Hemoglobin 6.5 g/dL (12.0-15.0); MCHC 32.7 g/dL (32.0-36.0); MCV 79.3 fL (80-100); MPV 6.1 fL (7.6-11.3); Monocytes % 6.8 % (3.3-12.3); Neutrophils % 77.8 % (41.7-73.7); Nucleated Red Blood Cells % 0.2 % (0-0); Platelets 695 thou/uL (152-406); Red Cell Distribution Width 18.4 % (12.1-15.2)
[2024-07-03 07:28] LABS: AST/SGOT 11 U/L (15-37); Albumin 1.7 g/dL (3.4-5.0); Albumin/Globulin Ratio 0.4 (1.1-1.8); Alkaline Phosphatase 106 U/L (45-117); Anion Gap 9.6 mEq/L (5.0-15.0); BUN Blood Urea Nitrogen 10 mg/dL (7-18); Bicarbonate 26 mEq/L (21-32); Bilirubin Total 0.4 mg/dL (0.2-1.0); Glomerular Filtration Rate 89 ml/min (=/>90); Glucose Level 91 mg/dL (74-106); Magnesium 1.3 mg/dL (1.6-2.4); NT PRO-BNP 3661 pg/mL (<450); Phosphorus 2.9 mg/dL (2.5-4.9); Potassium 3.6 mEq/L (3.5-5.1); Protein, Total 5.7 g/dL (6.4-8.2); Sodium Level 135 mEq/L (136-145)
[2024-07-03 07:30] LABS: ALT/SGPT < 14 U/L (13-56)
[2024-07-03] MEDS: Magnesium Sulfate 2gm IVPB 2 G/50 ML BAG IV ONE (07:56)
[2024-07-03] MEDS: PANTOPRAZOLE 40MG TABLET PO SCH (07:56)
[2024-07-03] MEDS: POTASSIUM CL SA 10 MEQ TAB PO ONE (07:57)
[2024-07-03] MEDS: EPOETIN ALFA 10,000 UNIT/ML VIAL SQ SCH (09:20)
[2024-07-04 06:06] LABS: Anion Gap 8.6 mEq/L (5.0-15.0); Potassium 3.6 mEq/L (3.5-5.1)
--- NOTE | 2024-07-04 08:42 | P.PN ---
Date of Service: 07/03/24 Subjective Patient continues with very little changes in her clinical status. She has started working with physical therapy on Thursday. Her hemoglobin remains fairly stable. Her iron levels are still low. She continues on iron transfusions. Waiting for swing bed placement. The patient does not respond well as swing bed they will not want to pursue any further treatment and will want to proceed with hospice care. Physical Examination - Vital Signs Reviewed - Physical Exam General: Alert, In no apparent distress, Oriented x3 Respiratory: Clear to auscultation bilaterally Cardiovascular: Regular rate/rhythm, Normal S1 S2 Gastrointestinal: Soft and benign, Non-distended Musculoskeletal: No clubbing, No swelling Neurological: No focal deficits Assessment and Plan - Assessment/Plan Assessment/Plan Continue with plan of care as mentioned below: 1. Acute blood loss anemia; Patient with severe anemia with a hemoglobin of 6.3. Patient's hemoglobin has been decreasing even though she is on Procrit. Patient refuses blood transfusion but will try other measures to try to get her hemoglobin up and keep it from dropping. Reticulocyte count is elevated. Hemoglobin remained stable at this time. Continue with iron transfusion and repeat H&H in the morning. 2.Hyponatremia; hypokalemia-will replace electrolytes and monitor closely 3. Hypertension-antihypertensives titrated; Continue home medications and titrate as needed 4. Hyperlipidemia; Continue statin 5. History of atrial fibrillation; Monitor closely under telemetry. Discontinue Eliquis 6. Lung cancer with Mets; family was posted seek further treatment but at this time they are waiting for patient to get stronger prior to entertaining that. It also contemplating hospice care as patient does not want any chemotherapy. GI/DVT prophylaxis Advanced directive full code Discharge Plan: Home Plan to discharge in: 48 Hours - Advance Directives Does patient have a Living Will: No Does patient have a Durable POA for Healthcare: No - Code Status/Comfort Care Code Status: Full Code Time Spent Managing Pts Care (In Minutes): 30
[2024-07-04] MEDS: POTASSIUM CL SA 10 MEQ TAB PO ONE (09:19)
--- NOTE | 2024-07-04 09:28 | P.PN ---
Subjective Date of Service: 07/04/24 Chief Complaint: Dizziness, low Hb <Emily Tavarez - Last Filed: 07/04/24 09:50> Date of Service: 07/04/24 <Yifan Ojeda Jean Marie - Last Filed: 07/04/24 15:21> Review of Systems 10-point ROS is otherwise unremarkable General: Weakness Eyes: Unremarkable ENT: Unremarkable Respiratory: Unremarkable Cardiovascular: Unremarkable Gastrointestinal: Unremarkable Genitourinary: Unremarkable Musculoskeletal: Other (Generalized weakness) Integumentary: Bruising (Scattered) Neurological: Weakness <Emily Tavarez - Last Filed: 07/04/24 09:50> Physical Examination - Vital Signs Temperature: 97.6 F Blood Pressure: 145/67 Pulse: 83 Respirations: 16 Pulse Ox (%): 93 - Physical Exam General: Alert, In no apparent distress, Oriented x3 HEENT: Atraumatic, Normocephalic Neck: Supple Respiratory: Normal air movement Cardiovascular: No edema, Regular rate/rhythm Capillary refill: <2 Seconds Gastrointestinal: Normal bowel sounds Musculoskeletal: No clubbing Integumentary: Other (Scattered ecchymosis) Neurological: Normal speech, Normal tone, Normal affect Lymphatics: No axilla or inguinal lymphadenopathy Urinary: Other (Pure wick) External genitalia: Deferred Rectal: Deferred <Emily Tavarez - Last Filed: 07/04/24 09:50> Assessment And Plan - Plan - Plan Anemia of chronic disease/nutritional Hypochromic microcytic Will get an iron level and TIBC -07/04/2024 iron level 14-18 Discussed in detail with the patient regarding blood transfusion Patient adamantly refused blood transfusion Monitor closely Denies any bleeding 07/04/2024 continues to decline blood transfusion hyponatremia Hypokalemia Will replace electrolytes and monitor closely 07/04/2024 Chem-7 stable Hypertension Antihypertensives titrated Continue home medications and titrate as needed Hyperlipidemia Continue statin History of atrial fibrillation Monitor closely under telemetry On Eliquis Will hold for now 06/03/2024 continue to hold Eliquis, heart rate mostly in 80s GI/DVT prophylaxis Advanced directive full code Discharge Plan: Home Plan to discharge in: 48 Hours - Advance Directives Does patient have a Living Will: No Does patient have a Durable POA for Healthcare: No - Code Status/Comfort Care Code Status: Full Code - Code Status/Comfort Care Code Status Assessed: Yes (Full) <Emily Tavarez - Last Filed: 07/04/24 09:50> - Plan Pt seen and examined. I agree with the note by the HUMAN RESOURCES SUPPORT SPECIALIST. Pt refused blood transfusion. Hgb is 6.5. She is waiting for a possible [place] swing bed. If not available, she will go home with home hospice care. Will continue home meds for other chronic medical problems. <Yifan Ojeda - Last Filed: 07/04/24 15:21>
[2024-07-05 06:57] LABS: Anion Gap 8.8 mEq/L (5.0-15.0); Potassium 3.8 mEq/L (3.5-5.1)
[2024-07-05 07:29] VITALS: BMI 23.6
[2024-07-05 07:50] LABS: Absolute Basophils 0.1 K/uL (0-0.5); Absolute Eosinophils 0.4 K/uL (0-0.5); Absolute Lymphocytes (CBC) 1.6 K/uL (0.7-4.9); Absolute Monocytes 0.7 K/uL (0.1-1.3); Absolute Neutrophil 10.5 K/uL (1.8-8.0); Basophils % 0.5 % (0-1.3); Hematocrit 22.6 % (36.0-45.0); Hemoglobin 7.1 g/dL (12.0-15.0); Lymphocytes % 12.2 % (15.3-44.8); MCH 25.2 pg (27.0-35.0); MCHC 31.4 g/dL (32.0-36.0); MCV 80.3 fL (80-100); MPV 6.1 fL (7.6-11.3); Monocytes % 5.1 % (3.3-12.3); Neutrophils % 79.2 % (41.7-73.7); Nucleated Red Blood Cells % 0.1 % (0-0); Platelets 667 thou/uL (152-406); RBC Red Blood Cell Count 2.81 M/uL (3.86-4.86)
[2024-07-05] MEDS: CALCIUM GLUCONATE 1 GM IVPB 1 GM/50 ML BAG IV SCH (08:22)
--- NOTE | 2024-07-05 15:22 | P.PN ---
Subjective Date of Service: 07/05/24 Chief Complaint: Dizziness, low Hb Subjective: No new changes (Does not want blood, or to be asked again. She is taking iron infusions but declines blood. Awaiting [facility] swing bed auth) <Chiara Tavarezingrid Crouch - Last Filed: 07/05/24 15:17> Date of Service: 07/05/24 <Yifan Ojeda Jean Marie - Last Filed: 07/05/24 21:26> Review of Systems 10-point ROS is otherwise unremarkable General: Weakness, Malaise Gastrointestinal: Constipation Musculoskeletal: Atrophy Integumentary: As per HPI Neurological: Weakness <Chiara Tavarezingrid Crouch - Last Filed: 07/05/24 15:17> Physical Examination - Vital Signs Temperature: 98.2 F Blood Pressure: 143/69 Pulse: 90 Respirations: 16 Pulse Ox (%): 100 - Physical Exam General: Alert, In no apparent distress, Oriented x3, Other ([place]or) HEENT: Atraumatic, Normocephalic Neck: Supple Respiratory: Diminished Cardiovascular: No edema, Normal pulses Capillary refill: <2 Seconds Gastrointestinal: Distended Musculoskeletal: No clubbing, No swelling Integumentary: No rashes, Other (pallor) Neurological: Normal speech, Normal tone, Normal affect Lymphatics: No axilla or inguinal lymphadenopathy External genitalia: Deferred Rectal: Deferred <Chiara Tavarezingrid Crouch - Last Filed: 07/05/24 15:17> Assessment And Plan - Plan - Plan Anemia of chronic disease/nutritional Hypochromic microcytic Will get an iron level and TIBC -07/04/2024 iron level 14-18 Discussed in detail with the patient regarding blood transfusion Patient adamantly refused blood transfusion Monitor closely Denies any bleeding 07/04/2024 continues to decline blood transfusion 07/05/24 awaiting [facility] swing bed auth hyponatremia Hypokalemia Will replace electrolytes and monitor closely 07/04/2024 Chem-7 stable Hypertension Antihypertensives titrated Continue home medications and titrate as needed Hyperlipidemia Continue statin History of atrial fibrillation Monitor closely under telemetry On Eliquis 07/04/2024 continue to hold Eliquis, heart rate mostly in 80s restart Eliquis at 2.5mg BID 07/05/24 Constipation Lactulose 20gm po now GI/DVT prophylaxis Advanced directive full code Discharge Plan: Home Plan to discharge in: 48 Hours - Advance Directives Does patient have a Living Will: No Does patient have a Durable POA for Healthcare: No - Code Status/Comfort Care Code Status: Full Code <Emily Tavarez - Last Filed: 07/05/24 15:17> - Plan Pt seen and examined. I agree with the note by the INFRASTRUCTURE DESIGN ENGINEER. Pt refused blood transf usion. Hgb is 7..1. Will replete deficient electrolytes and continue home meds forother chronic medical problems. Pt is waiting [facility] or Hospice placement. <Yifan Ojeda - Last Filed: 07/05/24 21:26>
[2024-07-05] MEDS: LACTULOSE 20 GM/30 ML UCUP PO ONE (15:31)
[2024-07-05] MEDS: APIXABAN 2.5 MG TABLET PO SCH (20:28)
--- NOTE | 2024-07-06 15:39 | P.PN ---
Subjective Date of Service: 07/06/24 Chief Complaint: Dizziness, low Hb Subjective: No new changes (awaiting [place] [facility]ing bed - insurance denial, looking in to [facility]) <Emily Tavarez - Last Filed: 07/06/24 15:40> Date of Service: 07/06/24 <Yifan Ojeda Jean Marie - Last Filed: 07/06/24 16:16> Review of Systems 10-point ROS is otherwise unremarkable General: Weakness, Malaise ENT: Unremarkable Respiratory: Unremarkable Cardiovascular: Unremarkable Gastrointestinal: Unremarkable Genitourinary: Unremarkable Musculoskeletal: Unremarkable Integumentary: Unremarkable Neurological: Other (working with PT) Lymphatics: Unremarkable <Emily Tavarez - Last Filed: 07/06/24 15:40> Physical Examination - Vital Signs Temperature: 98.5 F Blood Pressure: 134/70 Pulse: 90 Respirations: 18 Pulse Ox (%): 94 - Physical Exam General: Alert, In no apparent distress, Oriented x3 HEENT: Atraumatic, Normocephalic Neck: Supple Respiratory: Normal air movement Cardiovascular: Normal pulses, Regular rate/rhythm Capillary refill: <2 Seconds Gastrointestinal: Soft and benign Musculoskeletal: No clubbing Integumentary: No rashes Neurological: Abnormal strength (working with PT) Lymphatics: No axilla or inguinal lymphadenopathy External genitalia: Deferred Rectal: Deferred <Emily Tavarez - Last Filed: 07/06/24 15:40> Assessment And Plan - Plan - Plan Anemia of chronic disease/nutritional Hypochromic microcytic Will get an iron level and TIBC -07/04/2024 iron level 14-18 Discussed in detail with the patient regarding blood transfusion Patient adamantly refused blood transfusion Monitor closely Denies any bleeding 07/04/2024 continues to decline blood transfusion 07/05/24 awaiting [place] swing bed auth -denied 07/06/24 wants to transfer to SNF ([facility]) hyponatremia Hypokalemia Will replace electrolytes and monitor closely 07/04/2024 Chem-7 stable Hypertension Antihypertensives titrated Continue home medications and titrate as needed Hyperlipidemia Continue statin History of atrial fibrillation Monitor closely under telemetry On Eliquis 07/04/2024 continue to hold Eliquis, heart rate mostly in 80s restart Eliquis at 2.5mg BID 07/05/24 Continue 2.5mg BID on 07/06/24 Constipation Lactulose 20gm po now GI/DVT prophylaxis Advanced directive full code Discharge Plan: Home Plan to discharge in: 48 Hours - Advance Directives Does patient have a Living Will: No Does patient have a Durable POA for Healthcare: No - Code Status/Comfort Care Code Status: Full Code <Emily Tavarez - Last Filed: 07/06/24 15:40> - Plan Pt seen and examined. I agree with the note by the CAMPAIGN SPECIALIST. Pt refused blood transfusion. Hgb is 7.1. Continue iron infusion. Will replete deficient electrolytes and continue home meds for other chronic medical problems. Pt is waiting for [facility] bed <Yifan Ojeda - Last Filed: 07/06/24 16:16>
[2024-07-06] MEDS: LACTULOSE 20 GM/30 ML UCUP PO ONE (17:29)
[2024-07-07 06:22] LABS: Absolute Basophils 0.1 K/uL (0-0.5); Absolute Eosinophils 0.5 K/uL (0-0.5); Absolute Lymphocytes (CBC) 1.9 K/uL (0.7-4.9); Absolute Monocytes 0.8 K/uL (0.1-1.3); Absolute Neutrophil 13.1 K/uL (1.8-8.0); Basophils % 0.5 % (0-1.3); Eosinophils % 3.3 % (0-4.4); Hematocrit 24.5 % (36.0-45.0); Hemoglobin 7.6 g/dL (12.0-15.0); Lymphocytes % 11.5 % (15.3-44.8); MCH 25.1 pg (27.0-35.0); MCHC 30.9 g/dL (32.0-36.0); MCV 81.3 fL (80-100); MPV 6.5 fL (7.6-11.3); Monocytes % 4.7 % (3.3-12.3); Platelets 619 thou/uL (152-406); RBC Red Blood Cell Count 3.01 M/uL (3.86-4.86); Red Cell Distribution Width 20.3 % (12.1-15.2)
[2024-07-07 06:55] LABS: Anion Gap 6.9 mEq/L (5.0-15.0); Potassium 2.9 mEq/L (3.5-5.1)
[2024-07-07] MEDS: POTASSIUM CL SA 10 MEQ TAB PO SCH (08:35)
[2024-07-07 09:09] LABS: Anisocytosis 1+; Blood Morphology Comment NOTED (NOT SEEN); Platelet Estimate INCR; White Blood Cell Scan OK (OK)
[2024-07-07 09:10] LABS: Hypochromasia 1+; Microcytosis 1+; Polychromasia SLIGHT
[2024-07-07] MEDS: AMIODARONE HCL 200 MG TAB PO SCH (09:29)
--- NOTE | 2024-07-07 12:05 | P.DS ---
Admission Date: 06/29/24 Discharge Date: 07/07/24 Reason for Admission: Dizziness, low Hb Brief History of Present Illness: 83 yrs old Female with past medical history of atrial fibrillation on Eliquis, osteoporosis, neuropathy, hypothyroidism, GERD, depression, history of lung cancer, hypertension, prediabetes, anemia and history of cataract presents to ER with complaints of generalized weakness and dizziness and Abnormal Lab Results. Patient has been followed as an outpatient with the PCP and had lab work send found to have low hemoglobin and was sent over to here for further management. Patient denies any chest pain or shortness of breath. No fever or chills. No bleeding. Denies any melena or hematemesis. Patient was assessed in the ER and was admitted for further management of anemia symptomatic Hospital Course: Ms. Grey has had no complaints of chest pain, shortness of breath, but has been profoundly weak. Her hemoglobin is quite low but she refuses blood products. She was found to be iron deficient and excepted iron IV. She has been participating in PT. She was awaiting placement at [facility] for PT strengthening, but apparently [facility] is out of network. Ms. Grey has been accepted at [facility] and will be transferred there for PT. this morning she was noted to be tachycardic although asymptomatic and her amiodarone was reinitiated. She is encouraged to follow-up with her PCP in 1 week. <Emily Tavarez - Last Filed: 07/07/24 12:05> Admission Date: 06/29/24 Discharge Date: 07/07/24 Hospital Course: Pt seen and examined. I agree with the note by the BROTH MIXER. Pt's hgb improved to 7.6 after iron infusion. Continue home meds for other chronic medical problems. Ok to dc pt to [facility] <Yifan Ojeda - Last Filed: 07/07/24 12:36> Disposition: TRANSFER TO SENIOR CARE Discharge Condition: FAIR Vital Signs/Physical Exam: Temp Pulse Resp BP Pulse Ox 98 F 147 H 16 100/79 93 07/07/24 08:00 07/07/24 08:00 07/07/24 08:34 07/07/24 08:00 07/07/24 08:34 General: Alert, In no apparent distress, Oriented x3, Other ([place]) HEENT: Atraumatic, Normocephalic Neck: Supple Respiratory: Normal air movement Cardiovascular: No edema, Irregular heart rate/rhythm (Tachycardia) Capillary refill: <2 Seconds Gastrointestinal: Soft and benign Musculoskeletal: No clubbing Integumentary: Other ([place]or) Neurological: Normal speech, Normal affect, Abnormal strength Lymphatics: No axilla or inguinal lymphadenopathy External genitalia: Deferred Rectal: Deferred Laboratory Data at Discharge: WBC 16.40 thou/uL (4.3-10.9) H 07/07/24 06:10 Hgb 7.6 g/dL (12.0-15.0) L 07/07/24 06:10 Hct 24.5 % (36.0-45.0) L 07/07/24 06:10 Plt Count 619 thou/uL (152-406) H 07/07/24 06:10 Sodium 134 mEq/L (136-145) L 07/07/24 06:10 Potassium 2.9 mEq/L (3.5-5.1) L 07/07/24 06:10 BUN 5 mg/dL (7-18) L 07/07/24 06:10 Creatinine 0.70 mg/dL (0.55-1.02) 07/07/24 06:10 Glucose 95 mg/dL (74-106) 07/07/24 06:10 Phosphorus 2.9 mg/dL (2.5-4.9) 07/03/24 06:50 Magnesium 1.9 mg/dL (1.6-2.4) 07/03/24 17:05 Total Bilirubin 0.4 mg/dL (0.2-1.0) 07/03/24 06:50 AST 11 U/L (15-37) L 07/03/24 06:50 ALT < 14 U/L (13-56) 07/03/24 06:50 Alkaline Phosphatase 106 U/L (45-117) 07/03/24 06:50 <Tavarez,Emily Miko - Last Filed: 07/07/24 12:05> Vital Signs/Physical Exam: Temp Pulse Resp BP Pulse Ox 97.4 F 86 16 121/58 L 96 07/07/24 12:00 07/07/24 12:00 07/07/24 12:00 07/07/24 12:00 07/07/24 12:00 Laboratory Data at Discharge: WBC 16.40 thou/uL (4.3-10.9) H 07/07/24 06:10 Hgb 7.6 g/dL (12.0-15.0) L 07/07/24 06:10 Hct 24.5 % (36.0-45.0) L 07/07/24 06:10 Plt Count 619 thou/uL (152-406) H 07/07/24 06:10 Sodium 134 mEq/L (136-145) L 07/07/24 06:10 Potassium 2.9 mEq/L (3.5-5.1) L 07/07/24 06:10 BUN 5 mg/dL (7-18) L 07/07/24 06:10 Creatinine 0.70 mg/dL (0.55-1.02) 07/07/24 06:10 Glucose 95 mg/dL (74-106) 07/07/24 06:10 Phosphorus 2.9 mg/dL (2.5-4.9) 07/03/24 06:50 Magnesium 1.9 mg/dL (1.6-2.4) 07/03/24 17:05 Total Bilirubin 0.4 mg/dL (0.2-1.0) 07/03/24 06:50 AST 11 U/L (15-37) L 07/03/24 06:50 ALT < 14 U/L (13-56) 07/03/24 06:50 Alkaline Phosphatase 106 U/L (45-117) 07/03/24 06:50 <Yifan Ojeda - Last Filed: 07/07/24 12:36> Diet: AHA Activity: Fall precautions <Tavarez,Emily Miko - Last Filed: 07/07/24 12:05> <Yifan Ojeda - Last Filed: 07/07/24 12:36> Home Medications: Alendronate Sodium/Vitamin D3 [Fosamax Plus D 70 mg-2,800 Iu] 1 each PO Q7D 05/27/24 Fluticasone [Flonase 50MCG Nasal [place]*] 1 spray NS DAILY 05/27/24 Gabapentin 300 mg PO TID 08/16/24 Levothyroxine [Synthroid*] 50 mcg PO [id number] 05/27/24 Lisinopril [Zestril] 40 mg PO BEDTIME 05/27/24 Montelukast [Singulair*] 10 mg PO DAILY 05/27/24 Omeprazole 20 mg PO DAILY 05/27/24 Sertraline [Zoloft*] 50 mg PO BEDTIME 05/27/24 Amiodarone HCl [Cordarone*] 200 mg PO BID #180 tab 06/23/24 Apixaban [Eliquis] 5 mg PO BID #180 tab 06/23/24 Tramadol HCl [Ultram] 50 mg PO BID PRN 07/01/24 Physician Discharge Instructions: penitentiary facility: [place] [id number] [facility]. [place] [address] P:[phone] F:[phone] Ms. Grey has had no complaints of chest pain, shortness of breath, but has been profoundly weak. Her hemoglobin is quite low but she refuses blood products. She was found to be iron deficient and excepted iron IV. She has been participating in PT. She was awaiting placement at [facility] for PT strengthening, but apparently [facility] is out of network. Ms. Grey has been accepted at [facility] and will be transferred there for PT. this morning she was noted to be tachycardic although asymptomatic and her amiodarone was reinitiated. She is encouraged to follow-up with her PCP in 1 week. Followup: Abhinav Monsalve DO [Primary Care Provider] - 1-2 Weeks
[2024-07-07 12:11] VITALS: BP 121/58; TEMP 97.4
[2024-07-07 12:14] VITALS: O2SAT 96
--- NOTE | 2024-07-11 10:27 | EKG ---
Test Date: 2024-07-07 Test Time: 08:13:13 Photogrammetric Compilation Specialist: LEBRON MEASUREMENT RESULTS: Intervals: Rate: 106 [place]: 148 QRSD: 76 QT: 336 QTc: 446 [place]: P: 39 [place]: 148 QRS: 3 T: 21 INTERPRETIVE STATEMENTS: Sinus tachycardia Low voltage QRS Septal infarct, age undetermined Abnormal ECG Compared to ECG 06/29/2024 03:21:28 Low QRS voltage now present Sinus rhythm no longer present Myocardial infarct finding still present Electronically Signed On 07-11-24 10:23:19 CDT by Wade Diego
== END 2024-07-07 15:14 | DRG 812 ==
LOC: ER 02:05 → INTOOBSV 04:33 → ERHOLD 04:33 → OBSVTOIN 14:12 → 4TH 14:20
PROVIDERS: ADMIT Family Medicine; ATTEND Hospitalist
DX: D50.9 Iron deficiency anemia, unspecified (principal); E87.1 Hypo-osmolality and hyponatremia; C34.90 Malignant neoplasm of unspecified part of unspecified bronchus or lung; C79.9 Secondary malignant neoplasm of unspecified site; D63.8 Anemia in other chronic diseases classified elsewhere; D62 Acute posthemorrhagic anemia; I48.91 Unspecified atrial fibrillation; M81.0 Age-related osteoporosis without current pathological fracture; E03.9 Hypothyroidism, unspecified; G62.9 Polyneuropathy, unspecified; K59.00 Constipation, unspecified; E78.5 Hyperlipidemia, unspecified; E87.6 Hypokalemia; I10 Essential (primary) hypertension; K21.9 Gastro-esophageal reflux disease without esophagitis; Z79.01 Long term (current) use of anticoagulants; Z53.20 Procedure and treatment not carried out because of patient's decision for unspecified reasons; Z79.890 Hormone replacement therapy; Z79.899 Other long term (current) drug therapy
CPT/HCPCS: 36415; 80048; 80053; 81001; 82306; 82330; 82607; 83540; 83735; 83880; 84100; 84132; 84466; 84484; 85025; 85044; 86850; 86900; 86901; 87086; 87088; 93005; 94760; 96372; 97116; 97161; 97530; 99285; G0378; J0612; J2405; J2470; J2916; J3411; J3420; J3475; J3480; J7030; P9047; Q4081; Q5106